=== PATIENT | male | born 1950 | race Caucasian/White ===

== ENCOUNTER 2022-04-15 10:01 | Outpatient (CLI) | payer OTHER, SELFPAY ==
--- NOTE | 2022-04-15 10:21 | EST_ITS ---
Patient Info Name: Karthik Sen Age: 71 years : 1950 Gender: Male Ht: 71 in Wt: 185 lbs BSA: 2.06 m2 HR: 71 bpm BP: 145 / 86 mmHg Heart Rhythm: Sinus Rhythm Exam Date: 04/15/2022 10:45 AM Exam Location: [facility] Stress Patient Status: Outpatient Admit Date: 04/15/2022 Staff Ordering Physician: Carrillo Camarena MD Attending Provider: Carrillo Camarena MD Exercise Technologist: Jennifer Shaffer CT Exercise Physician: Vivek Reyes DO Exam Type: CA stress test treadmill Study Info Indications I25.10 - Atherosclerotic heart disease of [place] coronary artery without angina pectoris A treadmill exercise stress test was performed. Summary 1. 1. Negative Jh exercise stress test for ischemic ST changes by ECG criteria. 2. 2. Reduced functional capacity, achieving 7 METs of workload. 3. 3. Baseline hypertension. 4. 4. Appropriate HR response to exercise. 5. 5. Appropriate HR recovery at 1 minute post exercise. 6. 6. No imaging with stress testing. 7. 7. Patient informed of the above results. Protocol: Jh Stress ECG Details Stage: REST Duration (min): 3 min : 34 sec Speed (mph): 0.0 Grade (%): 0 HR (bpm): 76 SBP (mmHg): 145 DBP (mmHg): 86 METS: --- Stage: REST Duration (min): 3 min : 48 sec Speed (mph): 0.0 Grade (%): 0 HR (bpm): 73 SBP (mmHg): 145 DBP (mmHg): 86 METS: --- Stage: STAGE 1 Duration (min): 1 min : 0 sec Speed (mph): 1.7 Grade (%): 10 HR (bpm): 107 SBP (mmHg): 145 DBP (mmHg): 86 METS: --- Stage: STAGE 1 Duration (min): 2 min : 0 sec Speed (mph): 1.7 Grade (%): 10 HR (bpm): 125 SBP (mmHg): 145 DBP (mmHg): 86 METS: --- Stage: STAGE 1 Duration (min): 3 min : 0 sec Speed (mph): 1.7 Grade (%): 10 HR (bpm): 133 SBP (mmHg): 176 DBP (mmHg): 85 METS: --- Stage: STAGE 2 Duration (min): 1 min : 0 sec Speed (mph): 2.5 Grade (%): 12 HR (bpm): 141 SBP (mmHg): 176 DBP (mmHg): 85 METS: --- Stage: STAGE 2 Duration (min): 1 min : 30 sec Speed (mph): 2.5 Grade (%): 12 HR (bpm): 145 SBP (mmHg): 176 DBP (mmHg): 85 METS: --- Stage: RECOVERY Duration (min): 0 min : 29 sec Speed (mph): 0.0 Grade (%): 0 HR (bpm): 141 SBP (mmHg): 187 DBP (mmHg): 76 METS: --- Stage: RECOVERY Duration (min): 1 min : 29 sec Speed (mph): 0.0 Grade (%): 0 HR (bpm): 106 SBP (mmHg): 187 DBP (mmHg): 76 METS: --- Stage: RECOVERY Duration (min): 2 min : 29 sec Speed (mph): 0.0 Grade (%): 0 HR (bpm): 100 SBP (mmHg): 187 DBP (mmHg): 76 METS: --- Stage: RECOVERY Duration (min): 2 min : 55 sec Speed (mph): 0.0 Grade (%): 0 HR (bpm): 100 SBP (mmHg): 178 DBP (mmHg): 84 METS: --- Rest HR: 73 bpm Peak HR: 146 bpm Rest Sys BP: 145 mmHg Peak Sys BP: 187 mmHg Max Pred HR: 150 bpm % Max Pred HR: 9
== END 2022-04-15 10:02 | disposition home or self-care (01) ==
LOC: ANHCARD 10:03
PROVIDERS: PCP Family Medicine; Visit Provider Family Medicine
DX: I25.10 Atherosclerotic heart disease of native coronary artery without angina pectoris (principal)
CPT/HCPCS: 93017

== ENCOUNTER → 2023-09-27 10:31 | Outpatient (CLI) | payer OTHER, SELFPAY ==
--- NOTE | ~2023-09-27 | XR_ITS ---
EXAMINATION: XR knee RT min 4V DATE: 09/27/2023 11:01 INDICATION: Right knee pain TECHNIQUE: Four views of the right knee were obtained. COMPARISON: None. FINDINGS: Alignment is normal. No fracture or osteochondral lesion. There is moderate narrowing of th e medial compartment and mild narrowing in the lateral and patellofemoral compartments. Surgical mack ges of the knee likely reflect PCL repair. Calcified atherosclerosis is noted. There is a small knee joint effusion. Soft tissues are unremarkable. IMPRESSION: 1. Tricompartmental osteoarthritis, moderate in the medial compartment. Reviewed, dictated and finalized at location L. ISSARY HELPER
--- NOTE | ~2023-09-27 | XR_ITS ---
EXAMINATION: XR knee LT min 4V DATE: 09/27/2023 11:01 INDICATION: Left knee pain TECHNIQUE: Four views of the left knee were obtained. COMPARISON: None. FINDINGS: Alignment is normal. No fracture or osteochondral lesion. There is marked narrowing of the medial compartment and moderate narrowing of the patellofemoral compartment. There is mild narrowing in the lateral compartment. There is a small knee joint effusion. Soft tissues are unremarkable. IMPRESSION: 1. Tricompartmental osteoarthritis with marked narrowing of the medial compartment. Reviewed, dictated and finalized at location L. ENT SAFETY SITTER IMPRESSION: 1. Tricompartmental osteoarthritis with marked narrowing of the medial compartm ent.
== END ==
PROVIDERS: PCP Orthopaedic Surgery; Visit Provider Family Medicine
DX: M17.0 Bilateral primary osteoarthritis of knee (principal)
CPT/HCPCS: 73564

== ENCOUNTER 2024-04-24 10:34 | Outpatient (CLI) | payer OTHER, SELFPAY ==
--- NOTE | ~2024-04-24 | XR_ITS ---
EXAMINATION: XR chest 2V 04/24/2024 10:46 INDICATION: Shortness of breath PROCEDURE: 2 view chest COMPARISON: 11/11/2015 FINDINGS: The lungs are clear. The cardiomediastinal silhouette is within normal limits. There are no pleural effusions. There is no pneumothorax suspected. IMPRESSION: 1: NO ACUTE CARDIOPULMONARY DISEASE. Reviewed, dictated and finalized at location B.
== END 2024-04-24 10:35 ==
LOC: MICIMG 10:37
PROVIDERS: PCP Family Medicine; Visit Provider Physician Assistant Medical
DX: R06.02 Shortness of breath (principal); R53.1 Weakness
CPT/HCPCS: 71046

== ENCOUNTER 2024-05-25 07:32 | Inpatient (IN) | payer OTHER, SELFPAY ==
[2024-05-25] VITALS (33 sets, daily range): BP systolic 97–146; BP diastolic 53–86; PULSE 61–128; RESP 14–38; TEMP 36.2–39.6; O2SAT 91–100
--- NOTE | ~2024-05-25 | XR_ITS ---
EXAMINATION: XR retrograde pyelo w/stent RT DATE: 05/25/2024 13:26 INDICATION: Right internal ureteral stent placement TECHNIQUE: Fluoroscopic images from a right internal ureteral stent placement are submitted for mary beth lazaro 31 seconds of fluoroscopy time. 7 fluoroscopic images. FINDINGS: There is a right double-J internal ureteral stent projecting in expected position, with proximal [place] loop at the level of the renal pelvis and distal loop in the pelvis within the bladder lumen. IMPRESSION: 1. Right internal ureteral stent placement. Please refer to real-time procedural findings for antonieta sagastume. Reviewed, dictated and finalized at location B. IMPRESSION: 1. Right internal ureteral stent placement. Please refer to real-time procedu ral findings for details.
--- NOTE | ~2024-05-25 | CT_ITS ---
EXAMINATION: CT abdomen pelvis wo con DATE: 05/25/2024 09:04 INDICATION: Right flank pain. Right lower back pain. TECHNIQUE: Computed tomography (CT) of the abdomen and pelvis was performed without intravenous contr ast. Automated exposure control and iterative reconstruction technique were employed. The dose-length product was 527.52 mGy-cm. COMPARISON: CT abdomen 05/21/2008 FINDINGS: The visualized portions of the lung bases demonstrate mild atelectasis. A calcified left glenn ng nodule and calcified mediastinal lymph nodes are consistent with old granulomatous disease. No ple ural effusion. The heart size is normal. There are coronary artery calcifications. No pericardial eff usion. The liver and gallbladder are normal. Calcifications in the spleen are consistent with old gra nulomatous disease. The pancreas and adrenal glands are normal. There is a 7 mm stone in an infundibu lum in right kidney lower pole with mild hydronephrosis of the associated calyces. There is a [address] one in right kidney. Left kidney is normal. There is a left inguinal hernia containing fat. There is diverticulosis of the colon without evidence of diverticulitis. The appendix is not visualized. There is calcified atherosclerosis of the aorta and many of the other arteries. There are no pathologicall y enlarged lymph nodes. There is no free intraperitoneal fluid. There is lumbar levoscoliosis and mod erate spondylosis. IMPRESSION: 1. 7 mm stone in an infundibulum in right kidney lower pole with mild hydronephrosis of the associate d calyces. 2. 2 mm nonobstructing right kidney stone. Reviewed, dictated and finalized at location A. IMPRESSION: 1. 7 mm stone in an infundibulum in right kidney lower pole with mild hydroneph rosis of the associated calyces. 2. 2 mm nonobstructing right kidney stone.
--- NOTE | ~2024-05-25 | XR_ITS ---
XR chest 2V Ordering provider: Charlette Puente APRN History: 74 years Male with . tachycardia, cough, sepsis . Comparison: April 24, 2024 FINDINGS: MEDIASTINUM: The cardiac silhouette is not enlarged. LUNGS: No effusions or pneumothorax. Prominent markings in the lower lobes more on the right side which may indicate early pneumonia. Foll ow-up advised. OTHER: No free air under the diaphragm. Degenerative spine. IMPRESSION: Prominent markings in the lower lobes. Early pneumonia in the right lung base is not excluded. Follow -up advised Reviewed, dictated and finalized at location A. IMPRESSION: Prominent markings in the lower lobes. Early pneumonia in the right lung base i s not excluded. Follow-up advised
--- NOTE | 2024-05-25 07:40 | ED.GENADULT ---
HPI - General Adult General Chief complaint: Back Pain/Injury Stated complaint: right flank pain Time Seen by Provider: 05/25/24 07:34 History of Present Illness HPI narrative: 74-year-old male presenting to the emergency department for evaluation for intense right flank pain. Patient states the pain woke him up from sleep. Patient does report associated nausea. Patient denies any falls or injuries. Patient denies any prior history of kidney stones and denies any current pain with urination. Related Data Home Medications Medication Instructions Recorded Confirmed aspirin 81 mg tablet,delayed 81 mg PO DAILY 03/30/22 05/25/24 release (Adult Aspirin Regimen) tadalafil 5 mg tablet (Cialis) 5 mg PO DAILY 09/26/23 05/25/24 sildenafil 100 mg tablet 100 mg PO DAILY PRN NNA 11/04/23 05/25/24 meloxicam 7.5 mg tablet 7.5 mg PO DAILY 05/25/24 05/25/24 Allergies Allergy/AdvReac Type Severity Reaction Status Date / Time rabies vaccine, human Allergy Intermediate RASH, Verified 05/25/24 13:35 diploid cell SWELLING Review of Systems Review of Systems: All systems reviewed & are unremarkable except as noted in HPI and below PMFSH Past Medical History Medical History Avulsion of tendon of finger Bilateral knee pain Body mass index (BMI) of 26.0 to 26.9 in adult Coronary artery disease Mixed hyperlipidemia Priapism Right knee injury Screen for colon cancer Skin cancer screening Surgical History Surgical History Stented coronary artery Family History Family History Father Family history of heart disease in male family member before age 55 Mother Family history of heart disease in male family member before age 55 Sibling Heart disease Tobacco abuse Sibling Tobacco abuse Social History Social History Smoking status: Never smoker Second hand tobacco smoke exposure: Yes Alcohol intake: current Drinks per week: 1 Substance use: never Substance use type: does not use Do You Feel Safe in your Home?: Yes Lack of Transportation: No Lack of Food: Never True Current Housing: I Have Housing Concerned About Future Housing: No Difficulty Paying Gas/Electric Bills: No Difficulty Paying for Meds: No Currently Unemployed: No Education: Master's Degree or Higher Difficulty w/ Childcare or Family Care: No Living arrangements: with family 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 EYES: PERRLA/EOMI, conjunctivae clear. NOSE: Normal no drainage EARS:TMS clear with good light reflex. THROAT: Pharynx clear, no exudate. NECK: Supple. No adenopathy, no masses. RESPIRATORY: Airway patent, respirations nonlabored. Clear to auscultation bilaterally, no rales, rhonchi, wheezing. CARDIOVASCULAR: Regular rate and rhythm without murmurs rubs or gallops. ABDOMINAL: Right CVA tenderness to palpation, no significant abdominal tenderness to palpation MUSCULOSKELETAL: Moves all extremities. Strength/ROM intact, No edema, No calf tenderness. NEURO: Alert. Cranial nerves II through XII intact. Grossly intact Course Course Emergency Course: Case was discussed with Urology and patient was ultimately taken to the or Vital Signs Vital signs: Vital Signs Temperature 97.2 F L 05/25/24 07:37 Pulse Rate 75 05/25/24 07:37 Respiratory Rate 16 05/25/24 07:37 Blood Pressure 146/81 H 05/25/24 07:37 Pulse Oximetry 100 05/25/24 07:37 Temperature 99.7 F H 05/25/24 16:05 Pulse Rate 114 H 05/25/24 16:05 Respiratory Rate 17 05/25/24 16:05 Blood Pressure 105/59 L 05/25/24 16:05 Pulse Oximetry 93 05/25/24 16:05 Oxygen Delivery Room Air 05/25/24 15:40 Oxygen Flow Rate 2 05/25/24 15:35 Medical Decision Making [facility] Narrative Medical decision making narrative: 74-year-old male with no prior history of kidney stones presents emergency department for evaluation for intense right flank pain. Patient is afebrile but does have a leukocytosis of 12.3 and hemoglobin of 12.7. UA was positive for nitrates, +4 bacteria and white blood cells. CT scan does show a right-sided 7 mm kidney stone in the infundibulum. Difficult to control the patient's pain, discussed the case with Urology and patient will be taken to the OR for a stent. Anticipated disposition is discharge home after stent placement. Due to the patient's urinary analysis urine culture was ordered and patient was treated with a dose of 1 g IV Rocephin. Differential Diagnosis Differential Diagnosis: Kidney stone, infected kidney stone, gallstone Vital Signs Vital Signs: Vital Signs Temperature 97.2 F L 05/25/24 07:37 Pulse Rate 75 05/25/24 07:37 Respiratory Rate 16 05/25/24 07:37 Blood Pressure 146/81 H 05/25/24 07:37 Pulse Oximetry 100 05/25/24 07:37 Temperature 99.7 F H 05/25/24 16:05 Pulse Rate 114 H 05/25/24 16:05 Respiratory Rate 17 05/25/24 16:05 Blood Pressure 105/59 L 05/25/24 16:05 Pulse Oximetry 93 05/25/24 16:05 Oxygen Delivery Room Air 05/25/24 15:40 Oxygen Flow Rate 2 05/25/24 15:35 Lab Data Lab results reviewed: Yes I reviewed the patient's lab results. 05/25/24 07:43 05/25/24 07:43 Labs: Lab Results 05/25/24 05/25/24 05/25/24 Range/Units 07:43 09:11 16:57 WBC 12.3 H (4.5-10.0) K/mm3 RBC 4.72 (4.6-6.20) M/mm3 Hgb 12.7 L (14.0-18.0) g/dL Hct 39.5 L (42.0-52.0) % MCV 83.7 (80-100) fl MCH 26.9 (26-34) pg MCHC 32.2 (32-36) g/dl RDW 14.9 H (11.5-14.5) % Plt Count 355 (150-375) k/mm3 MPV 10.0 (7.4-10.4) fl Immature Gran % (Auto) 0.3 (0-0.5) % Neut % (Auto) 65.9 (45.5-73.1) % Lymph % (Auto) 26.5 (18.3-44.2) % [place] % (Auto) 5.8 (2.6-8.5) % Eos % (Auto) 1.0 (0-4.4) % Baso % (Auto) 0.5 (0.2-1.2) % Lymph # (Auto) 3.27 H (0.9-3.2) K/mm3 [place] # (Auto) 0.7 H (0.1-0.6) K/mm3 Eos # (Auto) 0.1 (0-0.3) K/mm3 Baso # (Auto) 0.1 (0.0-0.1) K/mm3 Abs Immat Gran (auto) 0.04 H (0.00-0.031) K/mm3 Absolute Neuts (auto) 8.1 H (1.3-6.7) K/mm3 Absolute Nucleated RBC 0.000 (0.0-0.012) K/mm3 Nucleated RBC % 0.0 (0.0-0.2) % Sodium 139 (137-145) mmol/L Potassium 3.9 (3.4-5.0) mmol/L Chloride 103 (98-107) mmol/L Carbon Dioxide 21 L (22-30) mmol/L Anion Gap 15 H (4-12) mmol/L BUN 18 (9-20) mg/dL Creatinine 0.70 (0.7-1.3) mg/dL Estim Creat Clear Calc 89 ml/min Estimated GFR > 60 (59 - ) Glucose 113 H (65-110) mg/dL Lactic Acid 1.9 (0.7-2.0) mmol/L Calcium 9.4 (8.4-10.2) mg/dL Total Bilirubin 0.6 (0.2-1.3) mg/dL AST 25 (17-59) U/L ALT 18 (6-50) U/L Alkaline Phosphatase 75 (38-126) U/L Total Protein 8.0 (6.3-8.2) g/dL Albumin 4.6 (3.5-5.1) g/dL Procalcitonin 29.1 ng/mL Urine Color Yellow (Yellow) Urine Appearance Clear (Clear) Urine pH 7.5 (5.0-9.0) Ur Specific [place] 1.016 (1.001-1.035) Urine Protein Trace (Negative) mg/dL Urine Glucose (UA) Negative (Negative) mg/dL Urine Ketones Negative (Negative) mg/dL Ur Blood (Man) Non-hemolyzed trace (Negative) Urine Nitrate Positive H (Negative) Urine Bilirubin Negative (Negative) Urine Urobilinogen 1.0 (<2.0) mg/dL Leukocyte Esterase Rfl 2+ H (Negative) NARCISA/UL Urine RBC 11-20 H (0-2) /hpf Urine WBC 21-50 H (0-3) /hpf Ur Squamous Epith Cells None seen (Few) /hpf Urine Bacteria 4+ H /hpf Urine Casts 0-2 ECG Data EKG #1: EKG Interpretation: normal rate, sinus rhythm, no ectopy, non-specific ST changes, normal QRS and NL axis Discharge Plan Discharge Clinical Impression: Calculi, ureter, Abnormal urinalysis Patient Disposition: Still a Patient Condition: Stable
[2024-05-25] MEDS: ONDANSETRON INJ 4 MG/2 ML VIAL IV PUSH ×2 (07:46→08:48)
[2024-05-25] MEDS: HYDROmorphone HCL INJ (*CRX) 1 MG/ML SYR 0.5 MG IV PUSH ×3 (07:46→12:51)
[2024-05-25 07:51] LABS: Basophils Absolute Auto 0.1 K/mm3 (0.0-0.1); Basophils Percent Auto 0.5 % (0.2-1.2); Eosinophils Absolute Auto 0.1 K/mm3 (0-0.3); Hematocrit 39.5 % (42.0-52.0); Hemoglobin 12.7 g/dL (14.0-18.0); Immature Granulocyte Absolute 0.04 K/mm3 (0.00-0.031); Immature Granulocyte Percent A 0.3 % (0-0.5); Lymphocytes Absolute Auto 3.27 K/mm3 (0.9-3.2); Lymphocytes Percent Auto 26.5 % (18.3-44.2); Mean Corpuscular HGB Conc 32.2 g/dl (32-36); Mean Corpuscular Hemoglobin 26.9 pg (26-34); Mean Corpuscular Volume 83.7 fl (80-100); Monocytes Absolute Auto 0.7 K/mm3 (0.1-0.6); Monocytes Percent Auto 5.8 % (2.6-8.5); Neutrophils Absolute Auto 8.1 K/mm3 (1.3-6.7); Neutrophils Percent Auto 65.9 % (45.5-73.1); Platelet Count Result 355 k/mm3 (150-375); Red Blood Count 4.72 M/mm3 (4.6-6.20); Red Cell Distribution Width 14.9 % (11.5-14.5); White Blood Count 12.3 K/mm3 (4.5-10.0)
[2024-05-25 08:00] LABS: Alanine Aminotransferase 18 U/L (6-50); Albumin Level 4.6 g/dL (3.5-5.1); Alkaline Phosphatase 75 U/L (38-126); Anion Gap 15 mmol/L (4-12); Aspartate Amino Transferase 25 U/L (17-59); Bilirubin,Total 0.6 mg/dL (0.2-1.3); Blood Urea Nitrogen 18 mg/dL (9-20); Calcium 9.4 mg/dL (8.4-10.2); Carbon Dioxide 21 mmol/L (22-30); Chloride 103 mmol/L (98-107); Estimated CRCL calculation 89 ml/min; Estimated Glomerular Filt Rate > 60; Glucose 113 mg/dL (65-110); Potassium 3.9 mmol/L (3.4-5.0); Sodium 139 mmol/L (137-145)
[2024-05-25] MEDS: SODIUM CHLORIDE 0.9% IV 500 ML 999 ML IV CONT (09:14)
[2024-05-25 09:29] LABS: Add Urine Microscopic? YES; Appearance Urine Clear (Clear); Bacteria Urine 4+ /hpf; Bilirubin Urine Negative (Negative); Blood Urine Non-Hemolyzed Trace (Negative); Color Urine Yellow (Yellow); Glucose Urine UA Negative (Negative); Ketones Urine Negative (Negative); Leukocyte Esterase Ur 2+ LEU/UL (Negative); Nitrate Urine Positive (Negative); Non Pathogenic Casts 0-2; Protein Urine Trace mg/dL (Negative); Specific Grav Ur 1.016 (1.001-1.035); Squamous Epithelial Cell Urine None Seen /hpf (Few); WBC Urine 21-50 /hpf (0-3); pH Urine 7.5 (5.0-9.0)
--- NOTE | 2024-05-25 10:04 | WPDHPUPDATE1 ---
History and Physical Update Update Date/Time: 05/25/24 10:04 History and Physical has been reviewed, including an updated exam of the patient. There are NO changes in the patient's condition. Risks, benefits, and alternatives have been discussed and questions answered. Patient agrees to proceed with procedure.
--- NOTE | 2024-05-25 10:38 | P.CONUR_ITS ---
Assessment and Plan Assessment and plan (1) Right renal stone: Code(s): N20.0 - Calculus of kidney Status: Acute Assessment and Plan: 7 mm right renal stone with mild hydro. Planning for cystoscopy with right u reteral stent placement today with Dr. Bettencourt. Discussed procedure and pt agrees to proceed. Understands temporary nature of stent and need for definitive stone management. Will plan for right ESWL at a later date. He is on aspirin and meloxicam which will need to be held prior to ESWL. (2) Hydronephrosis: Code(s): N13.30 - Unspecified hydronephrosis Status: Acute Assessment and Plan: Plan as above. (3) Abnormal urinalysis: Code(s): R82.90 - Unspecified abnormal findings in urine Status: Acute Assessment and Plan: UA abnormal, concerning for infection. Continue empiric antibiotics. Urine culture is pending. Urology Consult Note HPI Date Seen: 05/25/24 Time Seen: 09:30 Requesting Physician: Bora Bettencourt MD Primary Care Provider: Carrillo Camarena MD Consult Narrative Narrative: Karthik Sen is a 74 year old male with no prior urologic history who presented to the ER this morning after he developed sudden onset of right flank pain. Reports about 4 days ago he had an episode of hematuria that was self limited. He denies dysuria. Denies N/V/F/C. On arrival, his vital signs were stable and he was afebrile. WBC slightly elevated at 12.3, creatinine 0.7, UA with positive nitrates, 2+ leukocytes, and trace blood. A urine culture is pending at this time. A CT of the abdomen/pelvis was completed which showed a 7 mm stone in the right lower pole infundibulum with mild hydronephrosis in the calyces as well as a 2 mm nonobstructing right renal stone. At the time of my evaluation, he endorses persistent right flank pain. Will plan for cystoscopy and right ureteral stent placement today with Dr. Bettencourt. Discussed temporary nature of stent and need for appropriate follow up for definitive stone management; he is agreeable. Review of Systems Review of Systems: All systems reviewed & are unremarkable except as noted in HPI and below PMFSH Past Medical History Medical History Avulsion of tendon of finger Bilateral knee pain Body mass index (BMI) of 26.0 to 26.9 in adult Coronary artery disease Mixed hyperlipidemia Priapism Right knee injury Screen for colon cancer Skin cancer screening Family History Family History Father Family history of heart disease in male family member before age 55 Mother Family history of heart disease in male family member before age 55 Sibling Heart disease Tobacco abuse Sibling Tobacco abuse Social History Social History Smoking status: Never smoker Second hand tobacco smoke exposure: Yes Alcohol intake: current Substance use: never Substance use type: does not use Do You Feel Safe in your Home?: Yes Lack of Transportation: No Lack of Food: Never True Current Housing: I Have Housing Concerned About Future Housing: No Difficulty Paying Gas/Electric Bills: No Difficulty Paying for Meds: No Currently Unemployed: No Education: Master's Degree or Higher Difficulty w/ Childcare or Family Care: No Living arrangements: with family Occupation/Education: retired 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 Gender identity (if verbalized by the patient): Male Meds Home Medications and Allergies Home Medications Medication Instructions Recorded Confirmed Type aspirin 81 mg tablet,delayed 81 mg PO DAILY 03/30/22 04/24/24 History release (Adult Aspirin Regimen) epinephrine 0.3 mg/0.3 mL 0.3 mg (0.3 mL) IM ONCE #2 ea 07/27/23 04/24/24 Rx injection, auto-injector tadalafil 5 mg tablet (Cialis) 5 mg PO DAILY 09/26/23 04/24/24 History sildenafil 100 mg tablet 100 mg PO DAILY PRN 11/04/23 04/24/24 History rosuvastatin 40 mg tablet 40 mg PO DAILY #90 tabs 01/15/24 04/24/24 Rx meloxicam 7.5 mg tablet See Rx Instructions .Route 04/20/24 04/24/24 Rx .COMPLEX #30 tabs Allergies Allergy/AdvReac Type Severity Reaction Status Date / Time rabies vaccine, human Allergy Intermediate RASH, Verified 04/24/24 09:19 diploid cell SWELLING Vital Signs Vital Signs - 24 hr 05/25/24 07:37 05/25/24 07:38 05/25/24 07:39 Temperature 97.2 F L Pulse Rate 75 77 73 Respiratory Rate 16 14 38 H Blood Pressure 146/81 H 146/81 H Pulse Oximetry 100 100 100 05/25/24 07:45 05/25/24 07:48 05/25/24 08:03 Temperature Pulse Rate 73 73 67 Respiratory Rate 34 H 34 H 20 Blood Pressure 139/82 Pulse Oximetry 100 100 100 05/25/24 08:15 05/25/24 08:16 05/25/24 08:46 Temperature Pulse Rate 61 69 90 Respiratory Rate 16 15 23 H Blood Pressure 132/75 143/86 H Pulse Oximetry 97 97 100 05/25/24 08:47 Temperature Pulse Rate 99 Respiratory Rate 21 H Blood Pressure Pulse Oximetry 99 Exam Narrative: General: Awake, alert, comfortable, no acute distress HEENT: Normocephalic, atraumatic, sclerae anicteric Respiratory: Normal respiratory effort, no accessory muscle use Abdomen: Nondistended, soft, nontender Skin: Normal coloration, warm and dry Neurologic: No focal neuro deficits noted Psychiatric: Appropriate mood and affect, judgment and insight intact Results Labs 05/25/24 07:43 05/25/24 07:43 Labs: Short CBC 05/25/24 Range/Units 07:43 WBC 12.3 H (4.5-10.0) K/mm3 Hgb 12.7 L (14.0-18.0) g/dL Hct 39.5 L (42.0-52.0) % Plt Count 355 (150-375) k/mm3 BMP 05/25/24 07:43 Sodium 139 Potassium 3.9 Chloride 103 Carbon Dioxide 21 L BUN 18 Creatinine 0.70 Glucose 113 H Calcium 9.4 Liver Function 05/25/24 Range/Units 07:43 Total Bilirubin 0.6 (0.2-1.3) mg/dL AST 25 (17-59) U/L ALT 18 (6-50) U/L Alkaline Phosphatase 75 (38-126) U/L Albumin 4.6 (3.5-5.1) g/dL Urine 05/25/24 Range/Units 09:11 Urine Color Yellow (Yellow) Urine Appearance Clear (Clear) Urine pH 7.5 (5.0-9.0) Ur Specific [place] 1.016 (1.001-1.035) Urine Protein Trace (Negative) mg/dL Urine Glucose (UA) Negative (Negative) mg/dL
[2024-05-25] MEDS: LACTATED RINGERS 1,000 ML 30 ML IV CONT ×2 (11:45→14:30)
--- NOTE | 2024-05-25 11:53 | ECG_ITS ---
Test Date: 2024-05-25 12:04:13 Measurements Intervals [place] Rate: 113 P: 58 MT: 179 QRS: 4 QRSD: 98 T: 51 QT: 316 QTc: 434 Interpretive Statements SINUS TACHYCARDIA RIGHT ATRIAL ENLARGEMENT NONSPECIFIC T-WAVE ABNORMALITY ABNORMAL RHYTHM ECG No previous ECG available for comparison Electronically Signed On 05-25-2024 15:10:46 CDT by Major Shaw M.D.
--- NOTE | 2024-05-25 12:01 | P.PNAN_ITS ---
Anes - Initial Pre Proc Eval Procedure: Operation Date: 05/25/24 13:00 Proposed Procedures p Cystoscopy, Right Stent Placement - Bora Bettencourt MD Date/Time: 05/25/24 12:01 Surgeon: Bora Bettencourt MD Pre Op Diagnosis: Stent Patient Data Age: 74 Gender: M Height: 1.83 m Weight: 84.1 kg Last Vital Signs Temp 36.2 C L 05/25/24 07:37 Pulse 113 H 05/25/24 11:06 Resp 20 05/25/24 11:06 BP 119/63 05/25/24 11:06 Pulse Ox 91 05/25/24 11:06 Allergies Allergy/AdvReac Type Severity Reaction Status Date / Time rabies vaccine, human Allergy Intermediate RASH, Verified 04/24/24 09:19 diploid cell SWELLING Home Medications Medication Instructions Recorded Confirmed Type aspirin 81 mg tablet,delayed 81 mg PO DAILY 03/30/22 04/24/24 History release (Adult Aspirin Regimen) epinephrine 0.3 mg/0.3 mL 0.3 mg (0.3 mL) IM ONCE #2 ea 07/27/23 04/24/24 Rx injection, auto-injector tadalafil 5 mg tablet (Cialis) 5 mg PO DAILY 09/26/23 04/24/24 History sildenafil 100 mg tablet 100 mg PO DAILY PRN 11/04/23 04/24/24 History rosuvastatin 40 mg tablet 40 mg PO DAILY #90 tabs 01/15/24 04/24/24 Rx meloxicam 7.5 mg tablet See Rx Instructions .Route 04/20/24 04/24/24 Rx .COMPLEX #30 tabs Laboratory Tests 05/25/24 05/25/24 07:43 09:11 WBC 12.3 H K/mm3 (4.5-10.0) RBC 4.72 M/mm3 (4.6-6.20) Hgb 12.7 L g/dL (14.0-18.0) Hct 39.5 L % (42.0-52.0) MCV 83.7 fl (80-100) MCH 26.9 pg (26-34) MCHC 32.2 g/dl (32-36) RDW 14.9 H % (11.5-14.5) Plt Count 355 k/mm3 (150-375) MPV 10.0 fl (7.4-10.4) Immature Gran % (Auto) 0.3 % (0-0.5) Neut % (Auto) 65.9 % (45.5-73.1) Lymph % (Auto) 26.5 % (18.3-44.2) [place] % (Auto) 5.8 % (2.6-8.5) Eos % (Auto) 1.0 % (0-4.4) Baso % (Auto) 0.5 % (0.2-1.2) Lymph # (Auto) 3.27 H K/mm3 (0.9-3.2) [place] # (Auto) 0.7 H K/mm3 (0.1-0.6) Eos # (Auto) 0.1 K/mm3 (0-0.3) Baso # (Auto) 0.1 K/mm3 (0.0-0.1) Abs Immat Gran (auto) 0.04 H K/mm3 (0.00-0.031) Absolute Neuts (auto) 8.1 H K/mm3 (1.3-6.7) Absolute Nucleated RBC 0.000 K/mm3 (0.0-0.012) Nucleated RBC % 0.0 % (0.0-0.2) Sodium 139 mmol/L (137-145) Potassium 3.9 mmol/L (3.4-5.0) Chloride 103 mmol/L (98-107) Carbon Dioxide 21 L mmol/L (22-30) Anion Gap 15 H mmol/L (4-12) BUN 18 mg/dL (9-20) Creatinine 0.70 mg/dL (0.7-1.3) Estim Creat Clear Calc 89 ml/min Estimated GFR > 60 (59 - ) Glucose 113 H mg/dL (65-110) Calcium 9.4 mg/dL (8.4-10.2) Total Bilirubin 0.6 mg/dL (0.2-1.3) AST 25 U/L (17-59) ALT 18 U/L (6-50) Alkaline Phosphatase 75 U/L (38-126) Total Protein 8.0 g/dL (6.3-8.2) Albumin 4.6 g/dL (3.5-5.1) Urine Color Yellow (Yellow) Urine Appearance Clear (Clear) Urine pH 7.5 (5.0-9.0) Ur Specific [place] 1.016 (1.001-1.035) Urine Protein Trace mg/dL (Negative) Urine Glucose (UA) Negative mg/dL (Negative) Urine Ketones Negative mg/dL (Negative) Ur Blood (Man) Non-hemolyzed trace (Negative) Urine Nitrate Positive H (Negative) Urine Bilirubin Negative (Negative) Urine Urobilinogen 1.0 mg/dL (<2.0) Leukocyte Esterase Rfl 2+ H NARCISA/UL (Negative) Urine RBC 11-20 H /hpf (0-2) Urine WBC 21-50 H /hpf (0-3) Ur Squamous Epith Cells None seen /hpf (Few) Urine Bacteria 4+ H /hpf Urine Casts 0-2 Patient hx anesthesia problems: none Family hx anesthesia problems: none Results Review: All pre-operative results and documents have been reviewed as part of the pre- operative evaluation. [facility] Past Medical History Medical History Avulsion of tendon of finger Bilateral knee pain Body mass index (BMI) of 26.0 to 26.9 in adult Coronary artery disease Mixed hyperlipidemia Priapism Right knee injury Screen for colon cancer Skin cancer screening Surgical History Surgical History (Updated 05/25/24 @ 12:01 by Leo Lambert MD) Stented coronary artery Family History Family History Father Family history of heart disease in male family member before age 55 Mother Family history of heart disease in male family member before age 55 Sibling Heart disease Tobacco abuse Sibling Tobacco abuse Social History Social History Smoking status: Never smoker Second hand tobacco smoke exposure: Yes Alcohol intake: current Substance use: never Substance use type: does not use Do You Feel Safe in your Home?: Yes Lack of Transportation: No Lack of Food: Never True Current Housing: I Have Housing Concerned About Future Housing: No Difficulty Paying Gas/Electric Bills: No Difficulty Paying for Meds: No Currently Unemployed: No Education: Master's Degree or Higher Difficulty w/ Childcare or Family Care: No Living arrangements: with family Occupation/Education: retired 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 Informed Consent: The patient's anesthetic plan and its attendant risks and benefits were discussed with the patient/family/POA. Questions were solicited and answers provided to the satisfaction of the patient/family/POA.
[2024-05-25] MEDS: LIDOCAINE HCL 2% GEL UROJET 10 ML PKG MUCOUS MEM (13:19)
--- NOTE | 2024-05-25 13:23 | P.OP_ITS ---
Procedure Note - Detailed Date of Procedure 05/25/24 Pre-op Diagnosis Right renal stone Post-op Diagnosis Same Procedure Performed Cystoscopy, right retrograde pyelography, right ureteral stent placement Surgeon Bora Bettencourt MD Anesthesia General Description of Procedure patient is brought the operative suite was prepped draped in routine sterile fashion while in dorsal lithotomy position after the uneventful induction of systemic sedation. 2% xylocaine jelly was introduced intraurethrally. Cystosc opy was undertaken with a 19 F rigid cystoscope. There was no urethral stricture. He has a 2.5-3 cm prostatic urethra with predominantly lateral lobe hyperplasia. The bladder was slightly trabeculated. There was no intravesical foreign body or neoplasm. He has a single orthotopic ureteral orifice bilaterally. A 0.035 in glidewire is advanced to his right renal pelvis. Any angiographic catheter was used to obtain a right retrograde pyelogram. 4.8 F ureteral stent is positioned so that the proximal coil is in an upper pole calyx, above his renal stone coil is positioned in the bladder. Scopes and wires removed he was taken recovery room in good condition. Drains Yes Packing No Pathology None sent Complications No immediate complications
[2024-05-25] MEDS: ACETAMINOPHEN 500 MG TABLET 1000 MG PO (14:38)
[2024-05-25] MEDS: KETOROLAC 15 MG/ML VIAL (*BKC) IV PUSH (14:40)
--- NOTE | 2024-05-25 15:45 | SUR.PHASEI ---
1540 - dr. winters at bedside talking with pt
--- NOTE | 2024-05-25 16:26 | PM.IMHP ---
H&P: HPI History of Present Illness Date/Time: 05/25/24 16:26 Chief Complaint: Flank Pain Narrative: 74 y/o M presents here with right flank pain with PMH of coronary artery disease, hyperlipidemia, and priapism. The patient presented here from home for further evaluation of right lower back pain and right flank pain. He reports onset 1 hours prior to arrival to the emergency department around 7:30 this morning. Pain woke the patient from his sleep around 6:15 am. He described as sharp/stabbing, radiation down his right leg, constant, and no aggravating or alleviating factors. Trialed heat at home without effect. Accompanied by hematuria 4 days prior to pain today. Flank pain is not accompanied by nausea, vomiting, precipitating injury, or dysuria. Patient denies previous history of kidney stones. Urology was consulted in the emergency department and patient went for a retrograde pyelogram with stent placement. However postprocedure patient developed fever of 103.3? F and tachycardia with max heart rate of 128. Admission for possible urosepsis. Cough noted during exam, however patient not reporting shortness of breath. Initial VS at presentation: 97.2? F, HR 75, RR 16, 146/81, and 100% on RA. ED workup showed: WBC 12.3, hemoglobin 12.7, creatinine 0.7 and number GFR, UA consistent with UTI. CT of the abdomen/pelvis showed a 7 mm stone in a infundibulum in right kidney lower pole with mild hydronephrosis of the associated calyces and 2 mm nonobstructing right kidney stone. Review of Systems Review of Systems: All systems reviewed & are unremarkable except as noted in HPI and below PMFSH Past Medical History Medical History Avulsion of tendon of finger Bilateral knee pain Body mass index (BMI) of 26.0 to 26.9 in adult Coronary artery disease Mixed hyperlipidemia Priapism Right knee injury Screen for colon cancer Skin cancer screening Surgical History Surgical History Stented coronary artery Family History Family History Father Family history of heart disease in male family member before age 55 Mother Family history of heart disease in male family member before age 55 Sibling Heart disease Tobacco abuse Sibling Tobacco abuse Social History Social History Smoking status: Never smoker Second hand tobacco smoke exposure: Yes Alcohol intake: current Drinks per week: 1 Substance use: never Substance use type: does not use Do You Feel Safe in your Home?: Yes Lack of Transportation: No Lack of Food: Never True Current Housing: I Have Housing Concerned About Future Housing: No Difficulty Paying Gas/Electric Bills: No Difficulty Paying for Meds: No Currently Unemployed: No Education: Master's Degree or Higher Difficulty w/ Childcare or Family Care: No Living arrangements: with family Occupation/Education: retired 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 Gender identity (if verbalized by the patient): Male Spiritual care concerns: No Meds Home Medications and Allergies Home Medications Medication Instructions Recorded Confirmed Type aspirin 81 mg tablet,delayed 81 mg PO DAILY 03/30/22 05/25/24 History release (Adult Aspirin Regimen) tadalafil 5 mg tablet (Cialis) 5 mg PO DAILY 09/26/23 05/25/24 History sildenafil 100 mg tablet 100 mg PO DAILY PRN NNA 11/04/23 05/25/24 History rosuvastatin 40 mg tablet 40 mg PO DAILY #90 tabs 01/15/24 05/25/24 Rx meloxicam 7.5 mg tablet 7.5 mg PO DAILY 05/25/24 05/25/24 History Allergies Allergy/AdvReac Type Severity Reaction Status Date / Time rabies vaccine, human Allergy Intermediate RASH, Verified 05/25/24 13:35 diploid cell SWELLING Vital Signs Vital Signs - 24 hr 05/25/24 07:37 05/25/24 07:38 05/25/24 07:39 Temperature 97.2 F L Pulse Rate 75 77 73 Respiratory Rate 16 14 38 H Blood Pressure 146/81 H 146/81 H Pulse Oximetry 100 100 100 Oxygen Delivery Oxygen Flow Rate 05/25/24 07:45 05/25/24 07:48 05/25/24 08:03 Temperature Pulse Rate 73 73 67 Respiratory Rate 34 H 34 H 20 Blood Pressure 139/82 Pulse Oximetry 100 100 100 Oxygen Delivery Oxygen Flow Rate 05/25/24 08:15 05/25/24 08:16 05/25/24 08:46 Temperature Pulse Rate 61 69 90 Respiratory Rate 16 15 23 H Blood Pressure 132/75 143/86 H Pulse Oximetry 97 97 100 Oxygen Delivery Oxygen Flow Rate 05/25/24 08:47 05/25/24 10:01 05/25/24 10:37 Temperature Pulse Rate 99 110 H 112 H Respiratory Rate 21 H 15 17 Blood Pressure Pulse Oximetry 99 92 Oxygen Delivery Oxygen Flow Rate 05/25/24 10:45 05/25/24 11:06 05/25/24 13:27 Temperature 98.1 F Pulse Rate 112 H 113 H 106 H Respiratory Rate 15 20 19 Blood Pressure 119/63 98/61 L Pulse Oximetry 91 98 Oxygen Delivery Simple Face Mask Oxygen Flow Rate 8 05/25/24 11:45 05/25/24 13:35 05/25/24 13:45 Temperature 100.2 F H Pulse Rate 112 H 101 H 103 H Respiratory Rate 16 17 18 Blood Pressure 97/55 L 114/63 105/64 Pulse Oximetry 92 94 94 Oxygen Delivery Room Air Room Air Room Air Oxygen Flow Rate 05/25/24 14:00 05/25/24 14:15 05/25/24 14:30 Temperature 100.2 F H 101.5 F H Pulse Rate 101 H 128 H 120 H Respiratory Rate 20 24 H 24 H Blood Pressure 122/68 142/72 H 128/74 Pulse Oximetry 96 97 94 Oxygen Delivery Room Air Room Air Room Air Oxygen Flow Rate 05/25/24 14:40 05/25/24 14:50 05/25/24 15:05 Temperature 103.3 F H 99.6 F 101.2 F H Pulse Rate 118 H 117 H 120 H Respiratory Rate 26 H 15 16 Blood Pressure 141/73 H 126/68 101/59 L Pulse Oximetry 94 95 94 Oxygen Delivery Room Air Nasal Cannula Nasal Cannula Oxygen Flow Rate 2 2 05/25/24 15:20 05/25/24 15:35 05/25/24 15:40 Temperature Pulse Rate 118 H 118 H 120 H Respiratory Rate 18 24 H 18 Blood Pressure 106/54 L 101/60 100/53 L Pulse Oximetry 93 93 96 Oxygen Delivery Nasal Cannula Nasal Cannula Room Air Oxygen Flow Rate 2 2 05/25/24 16:05 Temperature 99.7 F H Pulse Rate 114 H Respiratory Rate 17 Blood Pressure 105/59 L Pulse Oximetry 93 Oxygen Delivery Oxygen Flow Rate Exam Const: General: comfortable and no acute distress Other: , male, nontoxic appearance HENMT: Face/Nose/Sinus: Normal nares present Mouth: Yes moist mucous membranes Eyes: General: appearance normal, both eyes and all related structures Sclera: sclerae normal Pupils: Equal, round and reactive pupils present EOM: EOMs intact bilaterally Resp: Effort & Inspection: normal respiratory effort Auscultation: clear to auscultation bilaterally Cardio: Rate: tachycardic Rhythm: regular rhythm Other: S1-S2 present without murmur, rub, ectopy GI: Other: Abdomen soft, nondistended, nontender. Improved. Normoactive bowel sounds in all quadrants. : Other: No CVA tenderness. Neuro: Speech: normal speech Motor exam (neuro): 5/5 motor strength present throughout Sensory Exam: normal sensation Other: A&O x4 Extrem: General: normal to inspection Psych: Mental Status: mental status grossly normal Affect: normal affect Other: Good insight and judgment, pleasant H&P: Results Labs Labs: Short CBC 05/25/24 Range/Units 07:43 WBC 12.3 H (4.5-10.0) K/mm3 Hgb 12.7 L (14.0-18.0) g/dL Hct 39.5 L (42.0-52.0) % Plt Count 355 (150-375) k/mm3 BMP 05/25/24 07:43 Sodium 139 Potassium 3.9 Chloride 103 Carbon Dioxide 21 L BUN 18 Creatinine 0.70 Glucose 113 H Calcium 9.4 Liver Function 05/25/24 Range/Units 07:43 Total Bilirubin 0.6 (0.2-1.3) mg/dL AST 25 (17-59) U/L ALT 18 (6-50) U/L Alkaline Phosphatase 75 (38-126) U/L Albumin 4.6 (3.5-5.1) g/dL Urine 05/25/24 Range/Units 09:11 Urine Color Yellow (Yellow) Urine Appearance Clear (Clear) Urine pH 7.5 (5.0-9.0) Ur Specific [place] 1.016 (1.001-1.035) Urine Protein Trace (Negative) mg/dL Urine Glucose (UA) Negative (Negative) mg/dL Assessment and Plan Assessment and plan (1) Sepsis: Qualifiers: Sepsis acute organ dysfunction status: without acute organ dysfunction Sepsis type: sepsis due to unspecified organism Qualified Code(s): A41.9 - Sepsis, unspecified organism Code(s): A41.9 - Sepsis, unspecified organism Status: Acute Assessment and Plan: - meets SIRS criteria: Fever, tachycardia, elevated white count. - lactic acid not done during initial evaluation, will add lactic acid and procalcitonin - 30 mL/kg = 2500, given 1L bolus. Will give additional bolus and continue maintenance fluids. - suspected source: septic stone/UTI - started on ceftriaxone - blood cultures drawn on 05/25 - UA suspicious for UTI - CXR added, showed prominent markings in the lower lobes. Early pneumonia in the right lung base cannot be excluded. Will add azithromycin to cover for pneumonia. - monitor I&Os (2) UTI (urinary tract infection): Qualifiers: Hematuria presence: without hematuria Urinary tract infection type: acute cystitis Qualified Code(s): N30.00 - Acute cystitis without hematuria Code(s): N39.0 - Urinary tract infection, site not specified Status: Acute Assessment and Plan: - UA: Positive nitrates, 2+ leuks, 11-20 RBC, 21-50 WBC, no epithelial cells, 4+ bacteria - UC pending - previous micro reviewed, none available for review - started on Ceftriaxone on 05/25 (3) Hydronephrosis: Qualifiers: Hydronephrosis type: with renal calculous obstruction Qualified Code(s): N13.2 - Hydronephrosis with renal and ureteral calculous obstruction Code(s): N13.30 - Unspecified hydronephrosis Status: Acute Assessment and Plan: - urology consulted, Lex OLVERA provided the following recs: Cystoscopy with right ureteral stent placement planned for today with Sg JAY right ESWL at a later date hold aspirin and meloxicam prior to ESWL - will need to follow-up with urology outpatient for definitive stone treatment, Urology discussed this with patient Plan Patient here with right flank pain found to have a 7 mm right renal stone with mild hydronephrosis. Patient went for cystoscopy with right ureteral stent placement. However post-procedure patient developed significant fever of 103.3 and tachycardia. Now being admitted for possible urosepsis. Fluids initiated and antipyretics. Started on ceftriaxone on 05/25. Blood cultures and urine culture pending. CXR showing possible right lower lobe pneumonia, adding azithromycin for pneumonia coverage. Diet: Regular GI Prophylaxis: Not currently indicated DVT Prophylaxis: SCDs Lines: Peripheral Code Status: Full code Quality VTE Prophylaxis VTE prophylaxis: mechanical ordered Hospitalist MIPS Advance Care Plan I have confirmed that the patient's Advanced Care Plan is present, code status is documented, or surrogate decision maker is listed in patient medical record.: Yes Medication Reconciliation I have utilized all available resources to obtain, update and review the patients current medications (includes all prescriptions, OTC, herbals, cannabis, and nutritional supplements).: Yes
--- NOTE | 2024-05-25 17:03 | P.PNUR_ITS ---
Progress Note: A&P Assessment and Plan (1) Right renal stone: Code(s): N20.0 - Calculus of kidney Status: Acute (2) Hydronephrosis: Qualifiers: Hydronephrosis type: with renal calculous obstruction Qualified Code(s): N13.2 - Hydronephrosis with renal and ureteral calculous obstruction Code(s): N13.30 - Unspecified hydronephrosis Status: Acute Assessment and Plan: * Postoperative fever and PACU will necessitate admission for broad-spectrum antibiotics pending cultures * My office will contact to arrange definitive right ESWL Subjective Subjective Date/Time Seen: 05/25/24 17:03 Interval history: Comfortable following stent placement Fever 101 in PACU Exam Const: General: no acute distress Resp: Effort & Inspection: normal respiratory effort GI: Inspection: non-distended GI Palp: No abdominal tenderness and No Guar ding due to palpation present (GI) Auscultation: normal bowel sounds Objective Data Vital Signs Vital Signs: Vital Signs - 24 hr 05/25/24 07:37 05/25/24 07:38 05/25/24 07:39 Temperature 97.2 F L Pulse Rate 75 77 73 Respiratory Rate 16 14 38 H Blood Pressure 146/81 H 146/81 H Pulse Oximetry 100 100 100 Oxygen Delivery Oxygen Flow Rate 05/25/24 07:45 05/25/24 07:48 05/25/24 08:03 Temperature Pulse Rate 73 73 67 Respiratory Rate 34 H 34 H 20 Blood Pressure 139/82 Pulse Oximetry 100 100 100 Oxygen Delivery Oxygen Flow Rate 05/25/24 08:15 05/25/24 08:16 05/25/24 08:46 Temperature Pulse Rate 61 69 90 Respiratory Rate 16 15 23 H Blood Pressure 132/75 143/86 H Pulse Oximetry 97 97 100 Oxygen Delivery Oxygen Flow Rate 05/25/24 08:47 05/25/24 10:01 05/25/24 10:37 Temperature Pulse Rate 99 110 H 112 H Respiratory Rate 21 H 15 17 Blood Pressure Pulse Oximetry 99 92 Oxygen Delivery Oxygen Flow Rate 05/25/24 10:45 05/25/24 11:06 05/25/24 13:27 Temperature 98.1 F Pulse Rate 112 H 113 H 106 H Respiratory Rate 15 20 19 Blood Pressure 119/63 98/61 L Pulse Oximetry 91 98 Oxygen Delivery Simple Face Mask Oxygen Flow Rate 8 05/25/24 11:45 05/25/24 13:35 05/25/24 13:45 Temperature 100.2 F H Pulse Rate 112 H 101 H 103 H Respiratory Rate 16 17 18 Blood Pressure 97/55 L 114/63 105/64 Pulse Oximetry 92 94 94 Oxygen Delivery Room Air Room Air Room Air Oxygen Flow Rate 05/25/24 14:00 05/25/24 14:15 05/25/24 14:30 Temperature 100.2 F H 101.5 F H Pulse Rate 101 H 128 H 120 H Respiratory Rate 20 24 H 24 H Blood Pressure 122/68 142/72 H 128/74 Pulse Oximetry 96 97 94 Oxygen Delivery Room Air Room Air Room Air Oxygen Flow Rate 05/25/24 14:40 05/25/24 14:50 05/25/24 15:05 Temperature 103.3 F H 99.6 F 101.2 F H Pulse Rate 118 H 117 H 120 H Respiratory Rate 26 H 15 16 Blood Pressure 141/73 H 126/68 101/59 L Pulse Oximetry 94 95 94 Oxygen Delivery Room Air Nasal Cannula Nasal Cannula Oxygen Flow Rate 2 2 05/25/24 15:20 05/25/24 15:35 05/25/24 15:40 Temperature Pulse Rate 118 H 118 H 120 H Respiratory Rate 18 24 H 18 Blood Pressure 106/54 L 101/60 100/53 L Pulse Oximetry 93 93 96 Oxygen Delivery Nasal Cannula Nasal Cannula Room Air Oxygen Flow Rate 2 2 05/25/24 16:05 Temperature 99.7 F H Pulse Rate 114 H Respiratory Rate 17 Blood Pressure 105/59 L Pulse Oximetry 93 Oxygen Delivery Oxygen Flow Rate Intake/Output Intake/Output: Intake & Output 05/22/24 05/23/24 05/24/24 05/25/24 23:59 23:59 23:59 23:59 Intake Total 1250 Balance 1250 Meds/Results Medications: Active Medications Generic Name Dose Route Start Last Admin Trade Name Freq PRN Reason Stop Dose Admin Acetaminophen 650 mg 05/25/24 18:30 Acetaminophen 325 Mg Tablet PO Q4H PRN Mild Pain (1-3) or Fever Fentanyl Citrate 25 mcg 05/25/24 11:58 Fentanyl Citrate Inj (*Crx) 100 Mcg/2 Ml Vial IV PUSH Q2M PRN Pain Ceftriaxone Sodium 1 gm in 50 mls @ 100 mls/hr 05/26/24 09:00 Rocephin 1 Gm/Ns 50 Ml IVPB Q24H ALICIA Lactated Ringer's 1,000 mls @ 30 mls/hr 05/25/24 12:00 05/25/24 14:30 Lr - Lactated Ringers Iv IV CONT Infused .Q24H ALICIA Infusion Lactated Ringer's 1,000 mls @ 30 mls/hr 05/25/24 12:00 05/25/24 15:45 Lr - Lactated Ringers Iv IV CONT Infused .Q24H ALICIA Infusion Sodium Chloride 1,000 mls @ 100 mls/hr 05/25/24 15:20 Normal Saline Iv IV CONT .Q10H ALICIA Lactated Ringer's 1,000 mls @ 999 mls/hr 05/25/24 16:34 Lr - Lactated Ringers Iv IV CONT 05/25/24 17:34 .Q1H1M STA Ondansetron HCl 4 mg 05/25/24 11:58 Ondansetron Inj 4 Mg/2 Ml Vial IV PUSH ONCE PRN Nausea Radiology Results: ITS Impressions Abdomen/Pelvis CT 05/25/24 09:06 IMPRESSION: 1. 7 mm stone in an infundibulum in right kidney lower pole with mild hydronephrosis of the associated calyces. 2. 2 mm nonobstructing right kidney stone. Retrograde Pyelogram 05/25/24 15:15 IMPRESSION: 1. Right internal ureteral stent placement. Please refer to real-time procedural findings for details. Labs Labs: Laboratory Results - last 24 hr 05/25/24 05/25/24 07:43 09:11 WBC 12.3 H RBC 4.72 Hgb 12.7 L Hct 39.5 L MCV 83.7 MCH 26.9 MCHC 32.2 RDW 14.9 H Plt Count 355 MPV 10.0 Immature Gran % (Auto) 0.3 Neut % (Auto) 65.9 Lymph % (Auto) 26.5 [place] % (Auto) 5.8 Eos % (Auto) 1.0 Baso % (Auto) 0.5 Lymph # (Auto) 3.27 H [place] # (Auto) 0.7 H Eos # (Auto) 0.1 Baso # (Auto) 0.1 Abs Immat Gran (auto) 0.04 H Absolute Neuts (auto) 8.1 H Absolute Nucleated RBC 0.000 Nucleated RBC % 0.0 Sodium 139 Potassium 3.9 Chloride 103 Carbon Dioxide 21 L Anion Gap 15 H BUN 18 Creatinine 0.70 Estim Creat Clear Calc 89 Estimated GFR > 60 Glucose 113 H Calcium 9.4 Total Bilirubin 0.6 AST 25 ALT 18 Alkaline Phosphatase 75 Total Protein 8.0 Albumin 4.6 Urine Color Yellow Urine Appearance Clear Urine pH 7.5 Ur Specific [place] 1.016 Urine Protein Trace Urine Glucose (UA) Negative Urine Ketones Negative Ur Blood (Man) Non-hemolyzed trace Urine Nitrate Positive H Urine Bilirubin Negative Urine Urobilinogen 1.0 Leukocyte Esterase Rfl 2+ H Urine RBC 11-20 H Urine WBC 21-50 H Ur Squamous Epith Cells None seen Urine Bacteria 4+ H Urine Casts 0-2
[2024-05-25] MEDS: LACTATED RINGERS 1,000 ML 999 ML IV CONT (17:14)
[2024-05-25 17:31] LABS: Lactic Acid Reflex 1.9 mmol/L (0.7-2.0)
[2024-05-25 17:49] LABS: Procalcitonin 29.1 ng/mL
[2024-05-25] MEDS: SODIUM CHLORIDE 0.9% IV 1,000 ML 100 ML IV CONT (18:38)
[2024-05-25] MEDS: AZITHROMYCIN 500 MG/NS 250 ML 500 MG/250 ML BAG 250 MG IVPB (18:38)
[2024-05-25] MEDS: ACETAMINOPHEN 325 MG TABLET 650 MG PO (20:16)
[2024-05-25] MEDS: MORPHINE SULFATE (*CRX) 2 MG/ML INJ IV PUSH (21:46)
[2024-05-25] MEDS: HYDROcodone/acetaminophen (*CRX) 5-325 MG TABLET 1 TAB PO (23:51)
[2024-05-26] VITALS (10 sets, daily range): BP systolic 117–137; BP diastolic 68–75; PULSE 86–106; RESP 16–18; TEMP 36.9–38.7; O2SAT 92–98
[2024-05-26] MEDS: MORPHINE SULFATE (*CRX) 2 MG/ML INJ IV PUSH (03:38)
[2024-05-26] MEDS: ACETAMINOPHEN 325 MG TABLET 650 MG PO ×2 (04:42→20:39)
[2024-05-26] MEDS: LORATADINE 10 MG TABLET PO (05:09)
[2024-05-26] MEDS: SODIUM CHLORIDE 0.9% IV 1,000 ML 100 ML IV CONT (05:10)
[2024-05-26 05:44] LABS: Hemoglobin 11.1 g/dL (14.0-18.0); Mean Corpuscular HGB Conc 31.7 g/dl (32-36); Mean Corpuscular Hemoglobin 26.9 pg (26-34); Mean Platelet Volume 10.4 fl (7.4-10.4); Platelet Count Result 272 k/mm3 (150-375); Red Blood Count 4.12 M/mm3 (4.6-6.20); Red Cell Distribution Width 15.4 % (11.5-14.5); White Blood Count 18.5 K/mm3 (4.5-10.0)
[2024-05-26] MEDS: HYDROcodone/acetaminophen (*CRX) 5-325 MG TABLET 1 TAB PO (05:52)
[2024-05-26 05:57] LABS: Anion Gap 10 mmol/L (4-12); Blood Urea Nitrogen 18 mg/dL (9-20); Calcium 8.8 mg/dL (8.4-10.2); Carbon Dioxide 20 mmol/L (22-30); Chloride 107 mmol/L (98-107); Estimated CRCL calculation 70 ml/min; Estimated Glomerular Filt Rate > 60; Glucose 133 mg/dL (65-110); Potassium 3.6 mmol/L (3.4-5.0); Sodium 137 mmol/L (137-145)
--- NOTE | 2024-05-26 07:32 | P.PNAN_ITS ---
Anes - Prog Note Post-Op Date/Time: 05/26/24 07:32 Cardiovascular status: normal Respiratory status: normal Airway patency: baseline Mental status: baseline Post-Op hydration status: normal Vital Signs: Last Vital Signs Temp 38.7 C H 05/26/24 06:32 Pulse 86 05/26/24 05:07 Resp 18 05/26/24 05:07 BP 124/72 05/26/24 05:07 Pulse Ox 93 05/26/24 05:07 O2 Del Method Room Air 05/25/24 20:00 O2 Flow Rate 2 05/25/24 15:35 Pain Score (VAS): 1 I/O: Intake & Output 05/25/24 05/25/24 05/26/24 15:59 23:59 07:59 Intake Total 7686 597 8604 Output Total 350 Balance 1250 350 900 Laboratory Tests 05/26/24 05:28 05/26/24 05:28 05/25/24 05/25/24 05/25/24 07:43 09:11 16:57 WBC 12.3 H RBC 4.72 Hgb 12.7 L Hct 39.5 L MCV 83.7 MCH 26.9 MCHC 32.2 RDW 14.9 H Plt Count 355 MPV 10.0 Immature Gran % (Auto) 0.3 Neut % (Auto) 65.9 Lymph % (Auto) 26.5 [place] % (Auto) 5.8 Eos % (Auto) 1.0 Baso % (Auto) 0.5 Lymph # (Auto) 3.27 H [place] # (Auto) 0.7 H Eos # (Auto) 0.1 Baso # (Auto) 0.1 Abs Immat Gran (auto) 0.04 H Absolute Neuts (auto) 8.1 H Absolute Nucleated RBC 0.000 Nucleated RBC % 0.0 Sodium 139 Potassium 3.9 Chloride 103 Carbon Dioxide 21 L Anion Gap 15 H BUN 18 Creatinine 0.70 Estim Creat Clear Calc 89 Estimated GFR > 60 Glucose 113 H Lactic Acid 1.9 Calcium 9.4 Total Bilirubin 0.6 AST 25 ALT 18 Alkaline Phosphatase 75 Total Protein 8.0 Albumin 4.6 Procalcitonin 29.1 Urine Color Yellow Urine Appearance Clear Urine pH 7.5 Ur Specific [place] 1.016 Urine Protein Trace Urine Glucose (UA) Negative Urine Ketones Negative Ur Blood (Man) Non-hemolyzed trace Urine Nitrate Positive H Urine Bilirubin Negative Urine Urobilinogen 1.0 Leukocyte Esterase Rfl 2+ H Urine RBC 11-20 H Urine WBC 21-50 H Ur Squamous Epith Cells None seen Urine Bacteria 4+ H Urine Casts 0-2 05/26/24 05:28 WBC 18.5 H RBC 4.12 L Hgb 11.1 L Hct 35.0 L MCV 85.0 MCH 26.9 MCHC 31.7 L RDW 15.4 H Plt Count 272 MPV 10.4 Immature Gran % (Auto) Neut % (Auto) Lymph % (Auto) [place] % (Auto) Eos % (Auto) Baso % (Auto) Lymph # (Auto) [place] # (Auto) Eos # (Auto) Baso # (Auto) Abs Immat Gran (auto) Absolute Neuts (auto) Absolute Nucleated RBC Nucleated RBC % Sodium 137 Potassium 3.6 Chloride 107 Carbon Dioxide 20 L Anion Gap 10 BUN 18 Creatinine 0.90 Estim Creat Clear Calc 70 Estimated GFR > 60 Glucose 133 H Lactic Acid Calcium 8.8 Total Bilirubin AST ALT Alkaline Phosphatase Total Protein Albumin Procalcitonin Urine Color Urine Appearance Urine pH Ur Specific [place] Urine Protein Urine Glucose (UA) Urine Ketones Ur Blood (Man) Urine Nitrate Urine Bilirubin Urine Urobilinogen Leukocyte Esterase Rfl Urine RBC Urine WBC Ur Squamous Epith Cells Urine Bacteria Urine Casts Post-procedural complaints: none Patient Feedback: Patient satisfied with anesthetic care.
[2024-05-26] MEDS: MELOXICAM 7.5 MG TABLET PO (09:18)
[2024-05-26] MEDS: ASPIRIN 81 MG ENTERIC TABLET PO (09:18)
[2024-05-26] MEDS: ROSUVASTATIN 20 MG TABLET 40 MG PO (09:18)
[2024-05-26] MEDS: FLUTICASONE PROPIONATE 0.05% NA SPR 16 GM BTL (*BKC) 1 SPRAY NASAL ×2 (09:19→20:37)
--- NOTE | 2024-05-26 10:48 | PM.IMPN ---
Progress Note: A&P Assessment and Plan (1) Calculi, ureter: Code(s): N20.1 - Calculus of ureter Status: Acute (2) Abnormal urinalysis: Code(s): R82.90 - Unspecified abnormal findings in urine Status: Acute (3) Sepsis: Qualifiers: Sepsis type: sepsis due to unspecified organism Sepsis acute organ dysfunction status: without acute organ dysfunction Qualified Code(s): A41.9 - Sepsis, unspecified organism Code(s): A41.9 - Sepsis, unspecified organism Status: Acute (4) UTI (urinary tract infection): Qualifiers: Urinary tract infection type: acute cystitis Hematuria presence: without hematuria Qualified Code(s): N30.00 - Acute cystitis without hematuria Code(s): N39.0 - Urinary tract infection, site not specified Status: Acute Plan 74 y/o M presents here with right flank pain with PMH of coronary artery disease, hyperlipidemia, and priapism, seasonal allergies, 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 The patient presented here from home for further evaluation of right lower back pain and right flank pain. He reports onset 1 hours prior to arrival to the emergency department around 7:30 this morning. Pain woke the patient from his sleep around 6:15 am. He described as sharp/stabbing, radiation down his right leg, constant, and no aggravating or alleviating factors. Trialed heat at home without effect. Accompanied by hematuria 4 days prior to pain today. Flank pain is not accompanied by nausea, vomiting, precipitating injury, or dysuria. Patient denies previous history of kidney stones. Urology was consulted in the emergency department and patient went for a retrograde pyelogram with stent placement. However postprocedure patient developed fever of 103.3? F and tachycardia with max heart rate of 128. Admission for possible urosepsis. Cough noted during exam, however patient not reporting shortness of breath. Initial VS at presentation: 97.2? F, HR 75, RR 16, 146/81, and 100% on RA. ED workup showed: WBC 12.3, hemoglobin 12.7, creatinine 0.7 and number GFR, UA consistent with UTI. CT of the abdomen/pelvis showed a 7 mm stone in a infundibulum in right kidney lower pole with mild hydronephrosis of the associated calyces and 2 mm nonobstructing right kidney stone. ----- On the day of admission 05/25/2024 the patient underwent a cystoscopy, right retrograde pyelography, right ureteral stent placement by Dr. Bettencourt. He is advised by Urology to follow-up in the outpatient setting for definitive ESWL. And 05/26 his fever curve has come down last temperature 99.9?. His pain is greatly improved. Ceftriaxone 1 g Q 24 hours IV and azithromycin (to cover pneumonia) was started on admission. His cough has improved after loratadine was started. He reports seasonal allergies and takes Zyrtec at home. Azithromycin can be discontinued after 3 days. Currently his febrile illness is improving however his white count is now up at 18.5 from 12.3 on admission. His procalcitonin was very high on admission at 21. We will recheck that again daily. Considering the above, it would be prudent to continue to treat him with IV antibiotics and follow-up blood and urine cultures which are still pending. Constipation, start MiraLax daily which he takes at home. For pain control continue acetaminophen, [place], morphine p.r.n. and graduated fashion. Discontinue fentanyl. Discontinue fluids ----- F/E/N: saline lock IV, replace lytes as needed, cardiac diet GI prophylaxis: Not indicated DVT prophylaxis: Heparin subQ 5000 units b.i.d. Bowel regimen: MiraLax daily Lines: Peripheral IV Tele: Not needed Precautions: None Code Status: Patient wishes to be full code Dispo: Anticipate discharge to home, continue to treat febrile illness, sepsis, UTI -Living arrangements, functional status, significant history: Lives at home with spouse Agents of Abuse -Illicit drug abuse: Denies -ETOH abuse: Rarely -Tobacco/nicotine: Denies -Energy drinks: Denies -Additional supplements: Denies Note to the patient: The Century Cures Act makes medical notes like these available to patients in the interest of transparency. Please be advised this is a medical document. It is intended for [id number] communication. It is written in medical language and may contain unfamiliar abbreviations or verbiage. Components may appear blunt or direct. Medical documents are intended to carry relevant information, facts as evident, and the clinical opinion of the practitioner at the time of the encounter. This note was generated by a speech recognition system and may contain inherent errors or omissions not intended by the user. Grammatical errors, random word insertions, deletions, pronoun errors and incomplete sentences are occasional consequences of this technology due to software limitations. Not all errors are caught or corrected. If there are questions or concerns about the content of this note or information contained within the body of this dictation they should be addressed directly with author for clarification. The file time of this note does not necessarily represent the time the patient was seen. Subjective Date/time seen: 05/26/24 10:48 Interval history: No acute overnight events. Brother and [id number] at bedside. He reports pain is greatly improved, mild only now. 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 His cough has resolved after he was given antihistamine. Denies abdominal pain/nausea/vomiting. His breathing is good. Review of Systems Review of Systems: All systems reviewed & are unremarkable except as noted in HPI and below (Subjective) Exam Const: General: comfortable and no acute distress Other: A&O x3 Eyes: Pupils: Equal, round and reactive pupils present Neck: Neck: supple Resp: Effort & Inspection: normal respiratory effort Auscultation: clear to auscultation bilaterally Cardio: Rate: regular rate Rhythm: regular rhythm GI: GI Palp: Yes Soft to palpation and No Tenderness to palpation present (GI) Urinary Catheter: Urinary Catheter: urine dark Extrem: General: no edema Objective Data Vital Signs Vital Signs: Vital Signs - 24 hr 05/25/24 11:06 05/25/24 13:27 05/25/24 11:45 Temperature 98.1 F 100.2 F H Pulse Rate 113 H 106 H 112 H Respiratory Rate 20 19 16 Blood Pressure 119/63 98/61 L 97/55 L Pulse Oximetry 91 98 92 Oxygen Delivery Simple Face Mask Room Air Oxygen Flow Rate 8 05/25/24 13:35 05/25/24 13:45 05/25/24 14:00 Temperature 100.2 F H Pulse Rate 101 H 103 H 101 H Respiratory Rate 17 18 20 Blood Pressure 114/63 105/64 122/68 Pulse Oximetry 94 94 96 Oxygen Delivery Room Air Room Air Room Air Oxygen Flow Rate 05/25/24 14:15 05/25/24 14:30 05/25/24 14:40 Temperature 101.5 F H 103.3 F H Pulse Rate 128 H 120 H 118 H Respiratory Rate 24 H 24 H 26 H Blood Pressure 142/72 H 128/74 141/73 H Pulse Oximetry 97 94 94 Oxygen Delivery Room Air Room Air Room Air Oxygen Flow Rate 05/25/24 14:50 05/25/24 15:05 05/25/24 15:20 Temperature 99.6 F 101.2 F H Pulse Rate 117 H 120 H 118 H Respiratory Rate 15 16 18 Blood Pressure 126/68 101/59 L 106/54 L Pulse Oximetry 95 94 93 Oxygen Delivery Nasal Cannula Nasal Cannula Nasal Cannula Oxygen Flow Rate 2 2 2 05/25/24 15:35 05/25/24 15:40 05/25/24 16:05 Temperature 99.7 F H Pulse Rate 118 H 120 H 114 H Respiratory Rate 24 H 18 17 Blood Pressure 101/60 100/53 L 105/59 L Pulse Oximetry 93 96 93 Oxygen Delivery Nasal Cannula Room Air Oxygen Flow Rate 2 05/25/24 20:16 05/25/24 20:22 05/25/24 21:22 Temperature 101.3 F H 101.2 F H 101.5 F H Pulse Rate 100 Respiratory Rate 20 Blood Pressure 107/64 Pulse Oximetry 95 Oxygen Delivery Oxygen Flow Rate 05/25/24 21:15 05/25/24 20:00 05/25/24 22:46 Temperature 101 F H 101.2 F H Pulse Rate Respiratory Rate Blood Pressure Pulse Oximetry Oxygen Delivery Room Air Oxygen Flow Rate 05/26/24 00:03 05/26/24 04:42 05/26/24 05:07 Temperature 100.7 F H 100.7 F H 100.8 F H Pulse Rate 90 86 Respiratory Rate 18 18 Blood Pressure 117/72 124/72 Pulse Oximetry 93 93 Oxygen Delivery Oxygen Flow Rate 05/26/24 06:31 05/26/24 06:32 05/26/24 08:02 Temperature 101 F H 101.7 F H 99.9 F H Pulse Rate 89 Respiratory Rate 17 Blood Pressure 124/70 Pulse Oximetry 93 Oxygen Delivery Oxygen Flow Rate Intake/Output Intake/Output: Intake & Output 05/23/24 05/24/24 05/25/24 05/26/24 23:59 23:59 23:59 23:59 Intake Total 1600 1250 Output Total 350 Balance 1600 900 Meds/Results Medications: Active Medications Generic Name Dose Route Start Last Admin Trade Name Freq PRN Reason Stop Dose Admin Acetaminophen 650 mg 05/25/24 18:30 05/26/24 04:42 Acetaminophen 325 Mg Tablet PO 650 mg Q4H PRN Administration Mild Pain (1-3) or Fever Hydrocodone Bitart/Acetaminophen 1 tab 05/25/24 21:36 05/26/24 05:52 Hydrocodone/Acetaminophen (*Crx) 5-325 Mg Tablet PO 1 tab Q4H PRN Administration Pain Rated 4-6 Aspirin 81 mg 05/26/24 09:00 05/26/24 09:18 Aspirin 81 Mg Enteric Tablet PO 81 mg DAILY ALICIA Administration Fentanyl Citrate 25 mcg 05/25/24 11:58 Fentanyl Citrate Inj (*Crx) 100 Mcg/2 Ml Vial IV PUSH Q2M PRN Pain Fluticasone Propionate 1 spray 05/26/24 09:00 05/26/24 09:19 Fluticasone Propionate 0.05% Na Spr 16 Gm Btl (*Bkc) NASAL 1 spray Q12HR ALICIA Administration Heparin Sodium (Porcine) 5,000 units 05/26/24 10:50 Heparin Sodium 5,000 Units/Ml Vial SUB-Q Q12HR ALICIA Ceftriaxone Sodium 1 gm in 50 mls @ 100 mls/hr 05/26/24 09:00 05/26/24 09:18 Rocephin 1 Gm/Ns 50 Ml IVPB 100 mls/hr Q24H ALICIA Administration Azithromycin 500 mg in 250 mls @ 250 mls/hr 05/25/24 18:00 05/25/24 18:38 Zithromax IVPB 250 mls/hr Q24H ALICIA Administration Loratadine 10 mg 05/26/24 05:00 05/26/24 05:09 Loratadine 10 Mg Tablet PO 10 mg QAM ALICIA Administration Morphine Sulfate 2 mg 05/25/24 21:36 05/26/24 03:38 Morphine Sulfate (*Crx) 2 Mg/Ml Inj IV PUSH 2 mg Q4H PRN Administration Pain Rated 7-10 Non-Formulary Medication 5 mg 05/26/24 09:00 Tadalafil [Cialis] PO 06/25/24 08:59 DAILY [facility] Non-Formulary Medication 100 mg 05/25/24 17:42 Sildenafil PO DAILY PRN NNA Ondansetron HCl 4 mg 05/25/24 11:58 Ondansetron Inj 4 Mg/2 Ml Vial IV PUSH ONCE PRN Nausea Polyethylene Glycol 17 gm 05/26/24 10:45 Polyethylene Glycol 3350 17 Gm Powd.Pack PO QAM [facility] Rosuvastatin Calcium 40 mg 05/26/24 09:00 05/26/24 09:18 Rosuvastatin 20 Mg Tablet PO 40 mg DAILY [facility] Administration Radiology Results: ITS Impressions Abdomen/Pelvis CT 05/25/24 09:06 IMPRESSION: 1. 7 mm stone in an infundibulum in right kidney lower pole with mild hydronephrosis of the associated calyces. 2. 2 mm nonobstructing right kidney stone. Retrograde Pyelogram 05/25/24 15:15 IMPRESSION: 1. Right internal ureteral stent placement. Please refer to real-time procedural findings for details. Chest X-Ray 05/25/24 17:05 IMPRESSION: Prominent markings in the lower lobes. Early pneumonia in the right lung base is not excluded. Follow-up advised Labs Labs: Laboratory Results - last 24 hr 05/25/24 05/26/24 16:57 05:28 WBC 18.5 H RBC 4.12 L Hgb 11.1 L Hct 35.0 L MCV 85.0 MCH 26.9 MCHC 31.7 L RDW 15.4 H Plt Count 272 MPV 10.4 Sodium 137 Potassium 3.6 Chloride 107 Carbon Dioxide 20 L Anion Gap 10 BUN 18 Creatinine 0.90 Estim Creat Clear Calc 70 Estimated GFR > 60 Glucose 133 H Lactic Acid 1.9 Calcium 8.8 Procalcitonin 29.1
[2024-05-26] MEDS: HEPARIN SODIUM 5,000 UNITS/ML VIAL 5000 UNITS SUB-Q ×2 (12:52→20:37)
[2024-05-26] MEDS: polyethylene glycoL 3350 17 GM POWD.PACK PO (12:52)
[2024-05-26] MEDS: ONDANSETRON INJ 4 MG/2 ML VIAL IV PUSH (16:35)
[2024-05-26] MEDS: AZITHROMYCIN 500 MG/NS 250 ML 500 MG/250 ML BAG 250 MG IVPB (18:18)
[2024-05-27] MEDS: HYDROcodone/acetaminophen (*CRX) 5-325 MG TABLET 1 TAB PO ×3 (02:44→14:20)
[2024-05-27] MEDS: LORATADINE 10 MG TABLET PO (03:29)
[2024-05-27 05:40] VITALS: BP 114/70; PULSE 86; RESP 18; TEMP 37.1; O2SAT 95
[2024-05-27 06:37] LABS: Basophils Percent Auto 0.2 % (0.2-1.2); Eosinophils Absolute Auto 0.1 K/mm3 (0-0.3); Eosinophils Percent Auto 0.5 % (0-4.4); Hematocrit 32.6 % (42.0-52.0); Hemoglobin 10.4 g/dL (14.0-18.0); Immature Granulocyte Absolute 0.14 K/mm3 (0.00-0.031); Immature Granulocyte Percent A 0.8 % (0-0.5); Lymphocytes Absolute Auto 1.66 K/mm3 (0.9-3.2); Lymphocytes Percent Auto 9.6 % (18.3-44.2); Mean Corpuscular HGB Conc 31.9 g/dl (32-36); Mean Corpuscular Volume 84.7 fl (80-100); Mean Platelet Volume 10.6 fl (7.4-10.4); Monocytes Absolute Auto 1.3 K/mm3 (0.1-0.6); Monocytes Percent Auto 7.3 % (2.6-8.5); Neutrophils Absolute Auto 14.2 K/mm3 (1.3-6.7); Neutrophils Percent Auto 81.6 % (45.5-73.1); Platelet Count Result 243 k/mm3 (150-375); Red Blood Count 3.85 M/mm3 (4.6-6.20); Red Cell Distribution Width 15.3 % (11.5-14.5); White Blood Count 17.4 K/mm3 (4.5-10.0)
[2024-05-27 06:55] LABS: Anion Gap 8 mmol/L (4-12); Blood Urea Nitrogen 13 mg/dL (9-20); Calcium 8.5 mg/dL (8.4-10.2); Carbon Dioxide 24 mmol/L (22-30); Chloride 103 mmol/L (98-107); Estimated CRCL calculation 89 ml/min; Estimated Glomerular Filt Rate > 60; Glucose 115 mg/dL (65-110); Magnesium 2.1 mg/dL (1.6-2.3); Potassium 3.6 mmol/L (3.4-5.0); Sodium 135 mmol/L (137-145)
[2024-05-27] MEDS: ASPIRIN 81 MG ENTERIC TABLET PO (07:25)
[2024-05-27] MEDS: ROSUVASTATIN 20 MG TABLET 40 MG PO (07:26)
[2024-05-27] MEDS: HEPARIN SODIUM 5,000 UNITS/ML VIAL 5000 UNITS SUB-Q ×2 (07:26→20:14)
[2024-05-27] MEDS: polyethylene glycoL 3350 17 GM POWD.PACK PO (07:27)
--- NOTE | 2024-05-27 12:11 | PM.IMPN ---
Progress Note: A&P Assessment and Plan (1) Calculi, ureter: Code(s): N20.1 - Calculus of ureter Status: Acute (2) Abnormal urinalysis: Code(s): R82.90 - Unspecified abnormal findings in urine Status: Acute (3) Sepsis: Qualifiers: Sepsis type: sepsis due to unspecified organism Sepsis acute organ dysfunction status: without acute organ dysfunction Qualified Code(s): A41.9 - Sepsis, unspecified organism Code(s): A41.9 - Sepsis, unspecified organism Status: Acute (4) UTI (urinary tract infection): Qualifiers: Urinary tract infection type: acute cystitis Hematuria presence: without hematuria Qualified Code(s): N30.00 - Acute cystitis without hematuria Code(s): N39.0 - Urinary tract infection, site not specified Status: Acute Plan 74 y/o M presents here with right flank pain with PMH of coronary artery disease, hyperlipidemia, and priapism, seasonal allergies, osteoarthritis, 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 The patient presented here from home for further evaluation of right lower back pain and right flank pain. He reports onset 1 hours prior to arrival to the emergency department around 7:30 this morning. Pain woke the patient from his sleep around 6:15 am. He described as sharp/stabbing, radiation down his right leg, constant, and no aggravating or alleviating factors. Trialed heat at home without effect. Accompanied by hematuria 4 days prior to pain today. Flank pain is not accompanied by nausea, vomiting, precipitating injury, or dysuria. Patient denies previous history of kidney stones. Urology was consulted in the emergency department and patient went for a retrograde pyelogram with stent placement. However postprocedure patient developed fever of 103.3? F and tachycardia with max heart rate of 128. Admission for possible urosepsis. Cough noted during exam, however patient not reporting shortness of breath. Initial VS at presentation: 97.2? F, HR 75, RR 16, 146/81, and 100% on RA. ED workup showed: WBC 12.3, hemoglobin 12.7, creatinine 0.7 and number GFR, UA consistent with UTI. CT of the abdomen/pelvis showed a 7 mm stone in a infundibulum in right kidney lower pole with mild hydronephrosis of the associated calyces and 2 mm nonobstructing right kidney stone. ----- On the day of admission 05/25/2024 the patient underwent a cystoscopy, right retrograde pyelography, right ureteral stent placement by Dr. Bettencourt. He is advised by Urology to follow-up in the outpatient setting for definitive ESWL. And 05/26 his fever curve has come down last temperature 99.9?. His pain is greatly improved. Ceftriaxone 1 g Q 24 hours IV and azithromycin (to cover pneumonia) was started on admission. His cough has improved after loratadine was started. He reports seasonal allergies and takes Zyrtec at home. Azithromycin can be discontinued after 3 days. Currently his febrile illness is improving however his white count is now up at 18.5 from 12.3 on admission. His procalcitonin was very high on admission at 21. We will recheck that again daily. Considering the above, it would be prudent to continue to treat him with IV antibiotics and follow-up blood and urine cultures which are still pending. Constipation, start MiraLax daily which he takes at home. For pain control continue acetaminophen, [place], morphine p.r.n. and graduated fashion. Discontinue fentanyl. Discontinue fluids On 05/26/2024 the patient is afebrile. His leukocytosis is mildly improved. He is doing better other we will continue to monitor him for today considering his white count is still high and his pain is not quite yet controlled. Also, importantly his urine cultures growing Gram-negative bacilli but we do not have sensitivities so we will await those. For now continue current antibiotics. Continue pain control. Discussed the interactions of heparin and meloxicam and the patient reports he can wait to restart the meloxicam. Since tomorrow may be a discharge day will check a CBC with differential and procalcitonin to help delineate disposition decisions. Procalcitonin has come down very nicely in a graduated fashion. For his constipation, he has not had a bowel movement since the day prior to admission and takes MiraLax daily at home. Continue that and start Senokot 1 tab p.o. q.h.s. 1 tab now and again tonight. ----- F/E/N: saline lock IV, replace lytes as needed, cardiac diet GI prophylaxis: Not indicated DVT prophylaxis: Heparin subQ 5000 units b.i.d. Bowel regimen: MiraLax daily Lines: Peripheral IV Tele: Not needed Precautions: None Code Status: Patient wishes to be full code Dispo: Anticipate discharge to home, continue to treat febrile illness, sepsis, UTI -Living arrangements, functional status, significant history: Lives at home with spouse Agents of Abuse -Illicit drug abuse: Denies -ETOH abuse: Rarely -Tobacco/nicotine: Denies -Energy drinks: Denies -Additional supplements: Denies Note to the patient: The Century Cures Act makes medical notes like these available to patients in the interest of transparency. Please be advised this is a medical document. It is intended for [id number] communication. It is written in medical language and may contain unfamiliar abbreviations or verbiage. Components may appear blunt or direct. Medical documents are intended to carry relevant information, facts as evident, and the clinical opinion of the practitioner at the time of the encounter. This note was generated by a speech recognition system and may contain inherent errors or omissions not intended by the user. Grammatical errors, random word insertions, deletions, pronoun errors and incomplete sentences are occasional consequences of this technology due to software limitations. Not all errors are caught or corrected. If there are questions or concerns about the content of this note or information contained within the body of this dictation they should be addressed directly with author for clarification. The file time of this note does not necessarily represent the time the patient was seen. Subjective Date/time seen: 05/27/24 12:11 Interval history: Overnight the patient reports episode of right flank pain which was severe but has now resolved. He received 2 doses of p.r.n. narcotic. This morning he is overall better but complains of some dullness/discomfort in the right lower quadrant which he thinks is attributed to constipation. He has no other complaints including fever chest pain shortness of breath. He requests with meloxicam for arthritis Review of Systems Review of Systems: All systems reviewed & are unremarkable except as noted in HPI and below (Subjective) Exam Const: General: comfortable and no acute distress Other: A&O x3 Eyes: Pupils: Equal, round and reactive pupils present Neck: Neck: supple Resp: Effort & Inspection: normal respiratory effort Auscultation: clear to auscultation bilaterally Cardio: Rate: regular rate Rhythm: regular rhythm GI: GI Palp: Yes Soft to palpation and No Tenderness to palpation present (GI) Extrem: General: no edema Objective Data Vital Signs Vital Signs: Vital Signs - 24 hr 05/26/24 12:45 05/26/24 17:34 05/26/24 21:10 Temperature 98.6 F 98.5 F 99.6 F Pulse Rate 89 106 H 95 Respiratory Rate 16 17 18 Blood Pressure 121/71 137/68 120/75 Pulse Oximetry 98 92 96 Oxygen Delivery 05/26/24 20:00 05/27/24 05:40 05/27/24 08:00 Temperature 98.8 F Pulse Rate 86 Respiratory Rate 18 Blood Pressure 114/70 Pulse Oximetry 95 Oxygen Delivery Room Air Room Air Intake/Output Intake/Output: Intake & Output 05/24/24 05/25/24 05/26/24 05/27/24 23:59 23:59 23:59 23:59 Intake Total 1850 2570 370 Output Total 750 Balance 1850 1820 370 Meds/Results Medications: Active Medications Generic Name Dose Route Start Last Admin Trade Name Freq PRN Reason Stop Dose Admin Acetaminophen 650 mg 05/25/24 18:30 05/26/24 20:39 Acetaminophen 325 Mg Tablet PO 650 mg Q4H PRN Administration Mild Pain (1-3) or Fever Hydrocodone Bitart/Acetaminophen 1 tab 05/25/24 21:36 05/27/24 07:24 Hydrocodone/Acetaminophen (*Crx) 5-325 Mg Tablet PO 1 tab Q4H PRN Administration Pain Rated 4-6 Aspirin 81 mg 05/26/24 09:00 05/27/24 07:25 Aspirin 81 Mg Enteric Tablet PO 81 mg DAILY ALICIA Administration Fluticasone Propionate 1 spray 05/26/24 09:00 05/26/24 20:37 Fluticasone Propionate 0.05% Na Spr 16 Gm Btl (*Bkc) NASAL 1 spray Q12HR ALICIA Administration Heparin Sodium (Porcine) 5,000 units 05/26/24 10:50 05/27/24 07:26 Heparin Sodium 5,000 Units/Ml Vial SUB-Q 5,000 units Q12HR ALICIA Administration Ceftriaxone Sodium 1 gm in 50 mls @ 100 mls/hr 05/26/24 09:00 05/27/24 07:26 Rocephin 1 Gm/Ns 50 Ml IVPB 100 mls/hr Q24H ALICIA Administration Azithromycin 500 mg in 250 mls @ 250 mls/hr 05/25/24 18:00 05/26/24 18:18 Zithromax IVPB 250 mls/hr Q24H ALICIA Administration Loratadine 10 mg 05/26/24 05:00 05/27/24 03:29 Loratadine 10 Mg Tablet PO 10 mg QAM ALICIA Administration Morphine Sulfate 2 mg 05/25/24 21:36 05/26/24 03:38 Morphine Sulfate (*Crx) 2 Mg/Ml Inj IV PUSH 2 mg Q4H PRN Administration Pain Rated 7-10 Ondansetron HCl 4 mg 05/25/24 11:58 05/26/24 16:35 Ondansetron Inj 4 Mg/2 Ml Vial IV PUSH 4 mg ONCE PRN Administration Nausea Polyethylene Glycol 17 gm 05/26/24 10:45 05/27/24 07:27 Polyethylene Glycol 3350 17 Gm Powd.Pack PO 17 gm QAM [facility] Administration Rosuvastatin Calcium 40 mg 05/26/24 09:00 05/27/24 07:26 Rosuvastatin 20 Mg Tablet PO 40 mg DAILY ALICIA Administration Senna/Docusate Sodium 1 tab 05/27/24 12:10 Senna/Docusate Sodium Tablet PO HS [facility] Radiology Results: ITS Impressions Abdomen/Pelvis CT 05/25/24 09:06 IMPRESSION: 1. 7 mm stone in an infundibulum in right kidney lower pole with mild hydronephrosis of the associated calyces. 2. 2 mm nonobstructing right kidney stone. Retrograde Pyelogram 05/25/24 15:15 IMPRESSION: 1. Right internal ureteral stent placement. Please refer to real-time procedural findings for details. Chest X-Ray 05/25/24 17:05 IMPRESSION: Prominent markings in the lower lobes. Early pneumonia in the right lung base is not excluded. Follow-up advised Labs Labs: Laboratory Results - last 24 hr 05/27/24 06:20 WBC 17.4 H RBC 3.85 L Hgb 10.4 L Hct 32.6 L MCV 84.7 MCH 27.0 MCHC 31.9 L RDW 15.3 H Plt Count 243 MPV 10.6 H Immature Gran % (Auto) 0.8 H Neut % (Auto) 81.6 H Lymph % (Auto) 9.6 L [place] % (Auto) 7.3 Eos % (Auto) 0.5 Baso % (Auto) 0.2 Lymph # (Auto) 1.66 [place] # (Auto) 1.3 H Eos # (Auto) 0.1 Baso # (Auto) 0.0 Abs Immat Gran (auto) 0.14 H Absolute Neuts (auto) 14.2 H Absolute Nucleated RBC 0.000 Nucleated RBC % 0.0 Sodium 135 L Potassium 3.6 Chloride 103 Carbon Dioxide 24 Anion Gap 8 BUN 13 D Creatinine 0.70 Estim Creat Clear Calc 89 Estimated GFR > 60 Glucose 115 H Calcium 8.5 Magnesium 2.1 Procalcitonin 17.0
[2024-05-27] MEDS: SENNA/DOCUSATE SODIUM TABLET 1 TAB PO ×2 (13:04→20:14)
[2024-05-27] MEDS: FLUTICASONE PROPIONATE 0.05% NA SPR 16 GM BTL (*BKC) 1 SPRAY NASAL ×2 (13:07→20:14)
[2024-05-27 15:18] VITALS: BP 121/68; PULSE 100; RESP 12; TEMP 37.9; O2SAT 94
[2024-05-27] MEDS: AZITHROMYCIN 500 MG/NS 250 ML 500 MG/250 ML BAG 250 MG IVPB (16:31)
[2024-05-27 22:00] VITALS: BP 129/72; PULSE 71; RESP 16; TEMP 37.7; O2SAT 94
[2024-05-28] MEDS: HYDROcodone/acetaminophen (*CRX) 5-325 MG TABLET 1 TAB PO ×2 (01:18→13:34)
[2024-05-28 06:00] VITALS: BP 127/78; PULSE 86; RESP 18; TEMP 37; O2SAT 99
[2024-05-28 06:52] LABS: Basophils Absolute Auto 0.1 K/mm3 (0.0-0.1); Basophils Percent Auto 0.4 % (0.2-1.2); Eosinophils Absolute Auto 0.1 K/mm3 (0-0.3); Eosinophils Percent Auto 0.7 % (0-4.4); Hematocrit 32.5 % (42.0-52.0); Hemoglobin 10.7 g/dL (14.0-18.0); Immature Granulocyte Absolute 0.09 K/mm3 (0.00-0.031); Immature Granulocyte Percent A 0.7 % (0-0.5); Lymphocytes Absolute Auto 1.98 K/mm3 (0.9-3.2); Lymphocytes Percent Auto 14.8 % (18.3-44.2); Mean Corpuscular HGB Conc 32.9 g/dl (32-36); Mean Corpuscular Hemoglobin 27.4 pg (26-34); Mean Corpuscular Volume 83.1 fl (80-100); Mean Platelet Volume 10.5 fl (7.4-10.4); Monocytes Absolute Auto 1.1 K/mm3 (0.1-0.6); Monocytes Percent Auto 8.3 % (2.6-8.5); Neutrophils Percent Auto 75.1 % (45.5-73.1); Platelet Count Result 245 k/mm3 (150-375); Red Blood Count 3.91 M/mm3 (4.6-6.20); Red Cell Distribution Width 14.9 % (11.5-14.5); White Blood Count 13.4 K/mm3 (4.5-10.0)
[2024-05-28 07:00] LABS: Anion Gap 11 mmol/L (4-12); Blood Urea Nitrogen 10 mg/dL (9-20); Calcium 8.7 mg/dL (8.4-10.2); Carbon Dioxide 24 mmol/L (22-30); Chloride 100 mmol/L (98-107); Estimated CRCL calculation 79 ml/min; Estimated Glomerular Filt Rate > 60; Glucose 107 mg/dL (65-110); Magnesium 2.1 mg/dL (1.6-2.3); Potassium 3.9 mmol/L (3.4-5.0); Sodium 135 mmol/L (137-145)
[2024-05-28 07:17] LABS: Procalcitonin 8.2 ng/mL
[2024-05-28] MEDS: ROSUVASTATIN 20 MG TABLET 40 MG PO (08:17)
[2024-05-28] MEDS: ASPIRIN 81 MG ENTERIC TABLET PO (08:18)
[2024-05-28] MEDS: LORATADINE 10 MG TABLET PO (08:18)
[2024-05-28] MEDS: polyethylene glycoL 3350 17 GM POWD.PACK PO (08:18)
[2024-05-28] MEDS: FLUTICASONE PROPIONATE 0.05% NA SPR 16 GM BTL (*BKC) 1 SPRAY NASAL (08:18)
[2024-05-28] MEDS: HEPARIN SODIUM 5,000 UNITS/ML VIAL 5000 UNITS SUB-Q (08:18)
--- NOTE | 2024-05-28 09:14 | WPDUROPN2 ---
Progress Note: A&P Assessment and Plan (1) Right renal stone: Code(s): N20.0 - Calculus of kidney Status: Acute Assessment and Plan: Underwent cystoscopy, right retrograde pyelogram, right ureteral stent placement on 05/25/2024. Tolerated procedure well. Plan for outpatient surgical follow-up for definitive stone management (2) Hydronephrosis: Qualifiers: Hydronephrosis type: with renal calculous obstruction Qualified Code(s): N13.2 - Hydronephrosis with renal and ureteral calculous obstruction Code(s): N13.30 - Unspecified hydronephrosis Status: Acute Assessment and Plan: S/p right ureteral stent as above (3) UTI (urinary tract infection): Qualifiers: Urinary tract infection type: acute cystitis Hematuria presence: without hematuria Qualified Code(s): N30.00 - Acute cystitis without hematuria Code(s): N39.0 - Urinary tract infection, site not specified Status: Acute Assessment and Plan: Preliminary urine culture with Gram-negative bacilli. Continue empiric antibiotics while awaiting final culture results. Preliminary blood cultures negative to date. Fever curve improving and he is afebrile so far today. WBC improved, 13.4 Subjective Subjective Date/Time Seen: 05/28/24 09:14 Interval history: Karthik is feeling slightly better today but still overall feeling poor. Biggest complaint is that of constipation. He endorses dysuria and hematuria without clots. Still having flank pain but reports improvement today. Denies nausea, vomiting, fever, chills. Review of Systems Review of Systems: All systems reviewed & are unremarkable except as noted in HPI and below Exam Narrative: General: Awake, alert, comfortable, no acute distress HEENT: Normocephalic, atraumatic, sclerae anicteric Respiratory: Normal respiratory effort, no accessory muscle use Abdomen: Nondistended, soft, nontender Skin: Normal coloration, warm and dry Neurologic: No focal neuro deficits noted Psychiatric: Appropriate mood and affect, judgment and insight intact Objective Data Vital Signs Vital Signs: Vital Signs - 24 hr 05/27/24 15:18 05/27/24 22:00 05/28/24 06:00 Temperature 100.3 F H 100 F H 98.6 F Pulse Rate 100 71 86 Respiratory Rate 12 16 18 Blood Pressure 121/68 129/72 127/78 Pulse Oximetry 94 94 99 Intake/Output Intake/Output: Intake & Output 05/25/24 05/26/24 05/27/24 05/28/24 23:59 23:59 23:59 23:59 Intake Total 1850 2570 1010 540 Output Total 750 Balance 1850 1820 1010 540 Meds/Results Medications: Active Medications Generic Name Dose Route Start Last Admin Trade Name Freq PRN Reason Stop Dose Admin Acetaminophen 650 mg 05/25/24 18:30 05/26/24 20:39 Acetaminophen 325 Mg Tablet PO 650 mg Q4H PRN Administration Mild Pain (1-3) or Fever Hydrocodone Bitart/Acetaminophen 1 tab 05/25/24 21:36 05/28/24 01:18 Hydrocodone/Acetaminophen (*Crx) 5-325 Mg Tablet PO 1 tab Q4H PRN Administration Pain Rated 4-6 Aspirin 81 mg 05/26/24 09:00 05/28/24 08:18 Aspirin 81 Mg Enteric Tablet PO 81 mg DAILY ALICIA Administration Fluticasone Propionate 1 spray 05/26/24 09:00 05/28/24 08:18 Fluticasone Propionate 0.05% Na Spr 16 Gm Btl (*Bkc) NASAL 1 spray Q12HR ALICIA Administration Heparin Sodium (Porcine) 5,000 units 05/26/24 10:50 05/28/24 08:18 Heparin Sodium 5,000 Units/Ml Vial SUB-Q 5,000 units Q12HR ALICIA Administration Ceftriaxone Sodium 1 gm in 50 mls @ 100 mls/hr 05/26/24 09:00 05/28/24 08:18 Rocephin 1 Gm/Ns 50 Ml IVPB 100 mls/hr Q24H ALICIA Administration Azithromycin 500 mg in 250 mls @ 250 mls/hr 05/25/24 18:00 05/27/24 16:31 Zithromax IVPB 250 mls/hr Q24H ALICIA Administration Loratadine 10 mg 05/26/24 05:00 05/28/24 08:18 Loratadine 10 Mg Tablet PO 10 mg QAM ALICIA Administration Morphine Sulfate 2 mg 05/25/24 21:36 05/26/24 03:38 Morphine Sulfate (*Crx) 2 Mg/Ml Inj IV PUSH 2 mg Q4H PRN Administration Pain Rated 7-10 Ondansetron HCl 4 mg 05/25/24 11:58 05/26/24 16:35 Ondansetron Inj 4 Mg/2 Ml Vial IV PUSH 4 mg ONCE PRN Administration Nausea Polyethylene Glycol 17 gm 05/26/24 10:45 05/28/24 08:18 Polyethylene Glycol 3350 17 Gm Powd.Pack PO 17 gm QAM ALICIA Administration Rosuvastatin Calcium 40 mg 05/26/24 09:00 05/28/24 08:17 Rosuvastatin 20 Mg Tablet PO 40 mg DAILY ALICIA Administration Senna/Docusate Sodium 1 tab 05/27/24 12:10 05/27/24 20:14 Senna/Docusate Sodium Tablet PO 1 tab HS ALICIA Administration Radiology Results: ITS Impressions Abdomen/Pelvis CT 05/25/24 09:06 IMPRESSION: 1. 7 mm stone in an infundibulum in right kidney lower pole with mild hydronephrosis of the associated calyces. 2. 2 mm nonobstructing right kidney stone. Retrograde Pyelogram 05/25/24 15:15 IMPRESSION: 1. Right internal ureteral stent placement. Please refer to real-time procedural findings for details. Chest X-Ray 05/25/24 17:05 IMPRESSION: Prominent markings in the lower lobes. Early pneumonia in the right lung base is not excluded. Follow-up advised Labs Labs: Laboratory Results - last 24 hr 05/28/24 06:40 WBC 13.4 H RBC 3.91 L Hgb 10.7 L Hct 32.5 L MCV 83.1 MCH 27.4 MCHC 32.9 RDW 14.9 H Plt Count 245 MPV 10.5 H Immature Gran % (Auto) 0.7 H Neut % (Auto) 75.1 H Lymph % (Auto) 14.8 L [place] % (Auto) 8.3 Eos % (Auto) 0.7 Baso % (Auto) 0.4 Lymph # (Auto) 1.98 [place] # (Auto) 1.1 H Eos # (Auto) 0.1 Baso # (Auto) 0.1 Abs Immat Gran (auto) 0.09 H Absolute Neuts (auto) 10.0 H Absolute Nucleated RBC 0.000 Nucleated RBC % 0.0 Sodium 135 L Potassium 3.9 Chloride 100 Carbon Dioxide 24 Anion Gap 11 BUN 10 Creatinine 0.80 Estim Creat Clear Calc 79 Estimated GFR > 60 Glucose 107 Calcium 8.7 Magnesium 2.1 Procalcitonin 8.2
[2024-05-28 10:59] LABS: INR 1.1; Prothrombin Time 14.2 Seconds (11.1-14.7)
[2024-05-28 11:00] LABS: Partial Thromboplastin Time 32.2 Seconds (22.3-36.8)
[2024-05-28 14:00] VITALS: BP 124/78; PULSE 96; RESP 16; TEMP 37; O2SAT 90
--- NOTE | 2024-05-28 14:41 | PM.DS ---
DS: Admitting Diagnosis Discharge Date 05/28/2024 Admitting Diagnosis Sepsis DS: Discharge Diagnosis Discharge Diagnosis (1) Calculi, ureter: Code(s): N20.1 - Calculus of ureter Status: Acute (2) Abnormal urinalysis: Code(s): R82.90 - Unspecified abnormal findings in urine Status: Acute (3) Sepsis: Qualifiers: Sepsis acute organ dysfunction status: without acute organ dysfunction Sepsis type: sepsis due to unspecified organism Qualified Code(s): A41.9 - Sepsis, unspecified organism Code(s): A41.9 - Sepsis, unspecified organism Status: Acute (4) UTI (urinary tract infection): Qualifiers: Hematuria presence: without hematuria Urinary tract infection type: acute cystitis Qualified Code(s): N30.00 - Acute cystitis without hematuria Code(s): N39.0 - Urinary tract infection, site not specified Status: Acute (5) Hydronephrosis: Qualifiers: Hydronephrosis type: with renal calculous obstruction Qualified Code(s): N13.2 - Hydronephrosis with renal and ureteral calculous obstruction Code(s): N13.30 - Unspecified hydronephrosis Status: Acute DS: Summary Hospital Course Hospital Course: 74 y/o M presents here with right flank pain with PMH of coronary artery disease, hyperlipidemia, and priapism, seasonal allergies, osteoarthritis, 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 The patient presented here from home for further evaluation of right lower back pain and right flank pain. He reports onset 1 hours prior to arrival to the emergency department around 7:30 this morning. Pain woke the patient from his sleep around 6:15 am. He described as sharp/stabbing, radiation down his right leg, constant, and no aggravating or alleviating factors. Trialed heat at home without effect. Accompanied by hematuria 4 days prior to pain today. Flank pain is not accompanied by nausea, vomiting, precipitating injury, or dysuria. Patient denies previous history of kidney stones. Urology was consulted in the emergency department and patient went for a retrograde pyelogram with stent placement. However postprocedure patient developed fever of 103.3? F and tachycardia with max heart rate of 128. Admission for possible urosepsis. Cough noted during exam, however patient not reporting shortness of breath. Initial VS at presentation: 97.2? F, HR 75, RR 16, 146/81, and 100% on RA. ED workup showed: WBC 12.3, hemoglobin 12.7, creatinine 0.7 and number GFR, UA consistent with UTI. CT of the abdomen/pelvis showed a 7 mm stone in a infundibulum in right kidney lower pole with mild hydronephrosis of the associated calyces and 2 mm nonobstructing right kidney stone. ----- On the day of admission 05/25/2024 the patient underwent a cystoscopy, right retrograde pyelography, right ureteral stent placement by Dr. Bettencourt. He is advised by Urology to follow-up in the outpatient setting for definitive ESWL. And 05/26 his fever curve has come down last temperature 99.9?. His pain is greatly improved. Ceftriaxone 1 g Q 24 hours IV and azithromycin (to cover pneumonia) was started on admission. His cough has improved after loratadine was started. He reports seasonal allergies and takes Zyrtec at home. Azithromycin can be discontinued after 3 days. Currently his febrile illness is improving however his white count is now up at 18.5 from 12.3 on admission. His procalcitonin was very high on admission at 21. We will recheck that again daily. Considering the above, it would be prudent to continue to treat him with IV antibiotics and follow-up blood and urine cultures which are still pending. Constipation, start MiraLax daily which he takes at home. For pain control continue acetaminophen, [place], morphine p.r.n. and graduated fashion. Discontinue fentanyl. Discontinue fluids On 05/26/2024 the patient is afebrile. His leukocytosis is mildly improved. He is doing better other we will continue to monitor him for today considering his white count is still high and his pain is not quite yet controlled. Also, importantly his urine cultures growing Gram-negative bacilli but we do not have sensitivities so we will await those. For now continue current antibiotics. Continue pain control. Discussed the interactions of heparin and meloxicam and the patient reports he can wait to restart the meloxicam. Since tomorrow may be a discharge day will check a CBC with differential and procalcitonin to help delineate disposition decisions. Procalcitonin has come down very nicely in a graduated fashion. For his constipation, he has not had a bowel movement since the day prior to admission and takes MiraLax daily at home. Continue that and start Senokot 1 tab p.o. q.h.s. 1 tab now and again tonight. On 05/27/2024 patient stable for discharge to home with his spouse. His pain is greatly improved. Urine is clear. Urine culture from admission on 05/25/2024 resulted E coli resistant to fluoroquinolones and Bactrim. Patient has been receiving ceftriaxone for 3 days. He will be discharged on Keflex 500 mg p.o. b.i.d. for another 7 days. On 05/25/2024 the day of admission the patient underwent cystoscopy, right retrograde pyelography, right ureteral stent placement by Dr. Bettencourt. He is discharged from a urologic and medical standpoint. He will be holding aspirin at the request of Urology. Repeat CBC in 3 days to ensure appropriate resolution of leukocytosis. On admission 18.5 now down to 13.4. Procalcitonin high on admission at 29.1 now 8.2. Adverse effects of medication discussed. Patient educated on the warning signs of worsening infection advised to return to the ER if he experiences those. Also advised to follow up with PCP. Patient agreed to the above plan. He was full code during the admission. ----- Note to the patient: The 21st Century Cures Act makes medical notes like these available to patients in the interest of transparency. Please be advised this is a medical document. It is intended for beef-qi-ocdo communication. It is written in medical language and may contain unfamiliar abbreviations or verbiage. Components may appear blunt or direct. Medical documents are intended to carry relevant information, facts as evident, and the clinical opinion of the practitioner at the time of the encounter. This note was generated by a speech recognition system and may contain inherent errors or omissions not intended by the user. Grammatical errors, random word insertions, deletions, pronoun errors and incomplete sentences are occasional consequences of this technology due to software limitations. Not all errors are caught or corrected. If there are questions or concerns about the content of this note or information contained within the body of this dictation they should be addressed directly with author for clarification. The file time of this note does not necessarily represent the time the patient was seen. Time Spent with Patient Time attestation: Total time spent providing and/or coordinating discharge services: Exam Const: General: comfortable and no acute distress Other: A&O x3 Eyes: Pupils: Equal, round and reactive pupils present Neck: Neck: supple Resp: Effort & Inspection: normal respiratory effort Auscultation: clear to auscultation bilaterally Cardio: Rate: regular rate Rhythm: regular rhythm GI: GI Palp: Yes Soft to palpation and No Tenderness to palpation present (GI) Extrem: General: no edema DS: Data Data Completed and Pending Labs on day of discharge: Labs from last 24 hours 05/28/24 05/28/24 10:43 06:40 WBC 13.4 H RBC 3.91 L Hgb 10.7 L Hct 32.5 L MCV 83.1 MCH 27.4 MCHC 32.9 RDW 14.9 H Plt Count 245 MPV 10.5 H Immature Gran % (Auto) 0.7 H Neut % (Auto) 75.1 H Lymph % (Auto) 14.8 L [place] % (Auto) 8.3 Eos % (Auto) 0.7 Baso % (Auto) 0.4 Lymph # (Auto) 1.98 [place] # (Auto) 1.1 H Eos # (Auto) 0.1 Baso # (Auto) 0.1 Abs Immat Gran (auto) 0.09 H Absolute Neuts (auto) 10.0 H Absolute Nucleated RBC 0.000 Nucleated RBC % 0.0 PT 14.2 INR 1.1 APTT 32.2 Sodium 135 L Potassium 3.9 Chloride 100 Carbon Dioxide 24 Anion Gap 11 BUN 10 Creatinine 0.80 Estim Creat Clear Calc 79 Estimated GFR > 60 Glucose 107 Calcium 8.7 Magnesium 2.1 Procalcitonin 8.2 Preliminary micro results at discharge 05/25/24 16:57 Blood Culture - Preliminary Blood 05/25/24 16:57 Blood Culture - Preliminary Blood Discharge Plan Discharge Attending physician on discharge: Bora Bettencourt Consulting providers: Bora Bettencourt Discharging Clinician: Bora Bettencourt Patient Disposition: Home, Self-Care Activity: other - see discharge instructions Diet: other - see discharge instructions Discharge Instructions: 1) Activity: no driving or important decisions x24 hours. 2) Diet: resume your normal, pre-admission diet. 3) Follow-up: my office will contact to schedule right ESWL. Stand Alone Forms: General Discharge Instructions Follow-up/Referrals: Carrillo Camarena MD [Primary Care Provider] - Discharge Medications: New cephalexin 500 mg capsule 500 mg PO Q12H 7 Days Qty: 14 0RF hydrocodone-acetaminophen 5-325 mg Tablet 1 tablet PO Q6H PRN (Reason: Pain Rated 4-6) Qty: 10 0RF Continued tadalafil [Cialis] 5 mg tablet 5 mg PO DAILY sildenafil 100 mg tablet 100 mg PO DAILY PRN (Reason: Erectile Dysfunction) Rx Instructions: administer 30 minutes to 4 hours before activity meloxicam 7.5 mg tablet 7.5 mg PO DAILY Rx Instructions: TAKE ONE TABLET (7.5 MG) BY MOUTH EVERY DAY oxymetazoline 0.05 % [place],Non-Aerosol 2 spray INTRANASAL Q12H PRN (Reason: Nasal Congestion) rosuvastatin 40 mg tablet 40 mg PO DAILY Qty: 90 1RF Held aspirin [Adult Aspirin Regimen] 81 mg tablet,delayed release (DR/EC) 81 mg PO DAILY Other Ambulatory Orders: Complete Blood Count with Diff (Routine) Timeframe: 3 Days Location: Determined by Patient Ordered By: Heather Metzger Date of admission: 05/25/24 18:00 Primary Care Provider: Carrillo Camarena Admitting Provider: Heather Metzger Attending physician on admission: Heather Metzger Condition: Stable
== END 2024-05-28 15:15 | disposition home or self-care (01) | DRG 660 ==
LOC: ANHED 09:42 → ANHSURGERY 10:05 → ANH3MEDSUR 16:03
PROVIDERS: Physician Assistant; Student in an Organized Health Care Education/Training Program; Urology; Admitting Provider General Practice; Emergency Provider Emergency Medicine; PCP Family Medicine; Visit Provider General Practice
PROC: 0T768DZ Dilation of Right Ureter with Intraluminal Device, Via Natural or Artificial Opening Endoscopic (ICD-10-PCS; CPT 52352; principal; 2024-05-25 13:00)
DX: N13.6 Pyonephrosis (principal); N48.30 Priapism, unspecified; B96.20 Unspecified Escherichia coli [E. coli] as the cause of diseases classified elsewhere; I25.10 Atherosclerotic heart disease of native coronary artery without angina pectoris; E78.2 Mixed hyperlipidemia; M19.90 Unspecified osteoarthritis, unspecified site; Z95.5 Presence of coronary angioplasty implant and graft; Z79.82 Long term (current) use of aspirin
CPT/HCPCS: 36415; 71046; 74176; 74420; 80048; 80053; 81001; 83605; 83735; 84145; 85025; 85027; 85610; 85730; 87040; 87077; 87086; 87088; 87186; 93005; 96361; 96365; 96375; 96376; 99285; A9270; C1758; C1769; C2617; G0378; J0456; J0696; J1171; J1644; J1885; J2003; J2270; J2405; J2704; J7030; J7040; J7120; Q9966

== ENCOUNTER 2024-05-31 01:55 | Day surgery (SDC) | payer OTHER, SELFPAY ==
[2024-05-28 11:36] VITALS: BMI 25.1
--- NOTE | 2024-05-28 11:52 | PC.NURSE ---
Report to the Outpatient Waiting Room, entrance under the green pavilion located off [facility], at time __10:00AM on date ___05/31/24____. Planned Procedure Time: ___12:00PM . Time changes happen often and if your time is changed the preop area will call you the afternoon before. - You and your visitor will be asked to self-screen and do not enter if you have any COVID symptoms. - A mask is optional within the hospital at this time. Patients may have clear liquids (water, carbonated beverages, clear teas, apple juice) until 3 hours prior to surgery with a maximum of 20 ounces. - No food from midnight until time of surgery. Take the following medications with a SIP of water the morning of surgery: NONE DO NOT STOP ANY OF YOUR OTHER PRESCRIPTION MEDICATIONS PRIOR TO SURGERY ?EXCEPT THE FOLLOWING Medications to discontinue per physician ___HOLD ASPIRIN PER DR [place] Date to take last dose Please no make-up, nail maltese, hairspray, perfume, deodorant, or body powder the day of surgery. No jewelry (including any body piercings) or valuables the day of surgery, leave them at home. Please take a shower or bath the night before, or the morning of, surgery with an antibacterial soap. Wear comfortable, loose fitting clothing. - Jewelry must be removed prior to entering the operating room. Rings and piercings that are not removed may be cut off. - The hospital will not accept responsibility for valuables. - Please leave all valuables, including medications, at home the day of surgery. If you are going home after surgery, a licensed long haul truck driver must drive you home. - NO public transportation without another adult if you receive anesthesia. - We recommend that an adult stay with you for 24 hours following discharge. - We also recommend that you do not drive, make important decision, drink alcoholic beverages, or take any drugs that were not prescribed by your health care provider for at least 24 hours after your discharge time. Follow any additional instructions given to you from your surgeon. If you or anyone in your household have experienced Covid symptoms in the past week, please notify your surgeon or the nurse liaison at the phone number below for possible testing. Telephone instructions given to ____PATIENT and asked if any additional questions and then verbalized understanding. Patient advised to call surgeon office or pre surgery nurse liaison [phone] if any additional questions.
--- NOTE | ~2024-05-31 | XR_ITS ---
EXAMINATION: XR abdomen/kub 1V DATE: 05/31/2024 10:26 INDICATION: Kidney stone. TECHNIQUE: A supine view of the abdomen on 2 radiographs was obtained. COMPARISON: CT abdomen and pelvis 05/25/2024 FINDINGS: There are no dilated loops of bowel. There is a 9 mm stone in right kidney. There is a righ t intraureteral stent in expected position. There are phleboliths in the pelvis. IMPRESSION: 1. 9 mm stone in right kidney with right internal ureteral stent in expected position. Reviewed, dictated and finalized at location A. IMPRESSION: 1. 9 mm stone in right kidney with right internal ureteral stent in expected po sition.
--- NOTE | 2024-05-31 06:05 | WPDHPUPDATE1 ---
History and Physical Update Update Date/Time: 05/31/24 06:05 History and Physical has been reviewed, including an updated exam of the patient. There are NO changes in the patient's condition. Risks, benefits, and alternatives have been discussed and questions answered. Patient agrees to proceed with procedure.
[2024-05-31 10:30] VITALS: BP 117/70; PULSE 106; RESP 18; TEMP 36.6; O2SAT 100
[2024-05-31] MEDS: LACTATED RINGERS 1,000 ML 30 ML IV CONT (10:30)
--- NOTE | 2024-05-31 10:53 | WPDANESEPPF ---
Anes - Initial Pre Proc Eval Procedure: Operation Date: 05/31/24 12:00 Proposed Procedures p Right Extracorporeal Shock Wave Lithotripsy - Bora Bettencourt MD Date/Time: 05/31/24 10:53 Surgeon: Bora Bettencourt MD Pre Op Diagnosis: Rt Renal Stone Patient Data Age: 74 Gender: M Height: 1.83 m Weight: 84 kg Allergies Allergy/AdvReac Type Severity Reaction Status Date / Time rabies vaccine, human Allergy Intermediate RASH, Verified 05/28/24 11:33 diploid cell SWELLING Home Medications Medication Instructions Recorded Confirmed Type aspirin 81 mg tablet,delayed 81 mg PO DAILY 03/30/22 05/28/24 History release (Adult Aspirin Regimen) tadalafil 5 mg tablet (Cialis) 5 mg PO DAILY 09/26/23 05/28/24 History sildenafil 100 mg tablet 100 mg PO DAILY PRN Erectile 11/04/23 05/28/24 History Dysfunction rosuvastatin 40 mg tablet 40 mg PO DAILY #90 tabs 01/15/24 05/28/24 Rx meloxicam 7.5 mg tablet 7.5 mg PO DAILY 05/25/24 05/28/24 History cephalexin 500 mg capsule 500 mg PO Q12H 7 days #14 caps 05/28/24 Rx hydrocodone 5 mg-acetaminophen 325 1 tablet PO Q6H PRN Pain Rated 4-6 05/28/24 Rx mg tablet #10 tabs oxymetazoline 0.05 % nasal spray 2 spray intranasal Q12H PRN Nasal 05/28/24 05/28/24 History Congestion Patient hx anesthesia problems: none Family hx anesthesia problems: none Results Review: All pre-operative results and documents have been reviewed as part of the pre-operative evaluation. [facility] Past Medical History Medical History Avulsion of tendon of finger Bilateral knee pain Body mass index (BMI) of 26.0 to 26.9 in adult Coronary artery disease Mixed hyperlipidemia Priapism Right knee injury Screen for colon cancer Skin cancer screening Surgical History Surgical History Stented coronary artery Family History Family History Father Family history of heart disease in male family member before age 55 Mother Family history of heart disease in male family member before age 55 Sibling Heart disease Tobacco abuse Sibling Tobacco abuse Social History Social History Smoking status: Never smoker Second hand tobacco smoke exposure: Yes Alcohol intake: current Drinks per week: 1 Substance use: never Substance use type: does not use Do You Feel Safe in your Home?: Yes Lack of Transportation: No Lack of Food: Never True Current Housing: I Have Housing Concerned About Future Housing: No Difficulty Paying Gas/Electric Bills: No Difficulty Paying for Meds: No Currently Unemployed: No Education: Master's Degree or Higher Difficulty w/ Childcare or Family Care: No Living arrangements: with family Additional living arrangements comments: Occupation/Education: retired 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 Hyperlipidemia, CAD s/p PTCA to LAD approx . Pt had stress test approx 2021 without ischemia. Pt active w gardening, boxing several days/week, no cp or sob. Informed Consent: The patient's anesthetic plan and its attendant risks and benefits were discussed with jake
[2024-05-31] MEDS: ceFAZolin 2 GM/D5W 50 ML 2 GM/50 ML BAG IVPB (11:50)
--- NOTE | 2024-05-31 12:28 | W.PM.PROC2 ---
Procedure Note - Detailed Date of Procedure 05/31/24 Pre-op Diagnosis Rt Renal Stone Post-op Diagnosis Same Procedure Performed Right ESWL Surgeon Bora Bettencourt MD Anesthesia General Description of Procedure The patient was brought to the operative suite where he was placed in the supine position on the [place] lithotripsy table. The focal point of the lithotripter was placed at a 9mm right renal pelvic calculus. A total of 2500 shocks were delivered at a power setting of 4. There appeared to be good fragmentation of the stone. The patient tolerated the procedure well and was taken to the recovery room in good condition. Complications No immediate complications Condition Stable Disposition PACU
[2024-05-31 12:37] VITALS: BP 124/75; PULSE 100; RESP 20; TEMP 36.3; O2SAT 98
[2024-05-31 12:50] VITALS: BP 127/77; PULSE 72; RESP 16; O2SAT 96
[2024-05-31 13:05] VITALS: BP 131/70; PULSE 72; RESP 18; O2SAT 94
[2024-05-31 13:10] VITALS: BP 138/72; PULSE 74; RESP 18
[2024-05-31] MEDS: oxyCODONE HCL (*CRX) 5 MG TAB IR PO (13:29)
[2024-05-31 13:35] VITALS: BP 141/74; PULSE 73; RESP 16
[2024-05-31] MEDS: ONDANSETRON INJ 4 MG/2 ML VIAL IV PUSH (13:52)
== END 2024-05-31 14:06 | disposition home or self-care (01) ==
PROVIDERS: PCP Family Medicine; Visit Provider Urology
PROC: (CPT 50590; principal; 2024-05-31 12:00)
DX: N20.0 Calculus of kidney (principal); N13.30 Unspecified hydronephrosis; I25.10 Atherosclerotic heart disease of native coronary artery without angina pectoris; E78.2 Mixed hyperlipidemia; Z79.82 Long term (current) use of aspirin; Z79.891 Long term (current) use of opiate analgesic; Z98.890 Other specified postprocedural states; Z95.5 Presence of coronary angioplasty implant and graft; Z82.49 Family history of ischemic heart disease and other diseases of the circulatory system
CPT/HCPCS: 50590; 74018; A9270; J0690; J1100; J2405; J2704; J7120

== ENCOUNTER 2024-06-15 08:37 | Outpatient (CLI) | payer OTHER, SELFPAY ==
--- NOTE | ~2024-06-15 | XR_ITS ---
Supine and upright views of the abdomen Clinical history: Renal stone COMPARISON: 05/31/2024 Findings: Bowel gas pattern is nonspecific. No evidence for obstruction or free air. Right ureteral s tent in place. Proximal right ureteral stone no longer seen. Osseous structures are intact. Impression: Right ureteral stent in place. No renal stone evident. Reviewed, dictated and finalized at location . Impression: Right ureteral stent in place. No renal stone evident.
== END 2024-06-15 08:38 | disposition home or self-care (01) ==
PROVIDERS: PCP Family Medicine; Visit Provider Urology
DX: N20.1 Calculus of ureter (principal); Z96.0 Presence of urogenital implants
CPT/HCPCS: 74018

== ENCOUNTER 2024-06-26 07:58 | Outpatient (CLI) | payer OTHER, SELFPAY ==
--- NOTE | 2024-06-26 08:15 | ECHO_ITS ---
Patient Info Name: Karthik Sen Age: 74 years : 1950 Gender: Male Ht: 72 in Wt: 184 lbs BSA: 2.07 m2 HR: 75 bpm BP: 135 / 76 mmHg Technical Quality: Fair Exam Date: 06/26/2024 8:51 AM Exam Location: Echo Lab Patient Status: Outpatient Admit Date: 06/26/2024 Staff Ordering Physician: Judi Lewis PAC Counterintelligence Analyst: Prema Whaley RDCS Attending Provider: Judi Lewis Referring Physician: Debbie MCKEON; Exam Type: CA echo doppler color flow Study Info Indications R06.02 - Shortness of breath Complete two-dimensional, color flow and Doppler transthoracic echocardiogram is performed. Strain analysis performed. Summary 1. Complete two-dimensional, color flow and Doppler transthoracic echocardiogram is performed. 2. Left ventricular chamber dimension is normal. 3. Left ventricular systolic function is normal, estimated at 60-65%. 4. The left ventricular diastolic function is grade I diastolic dysfunction. 5. E/e' 9 is minimally elevated. 6. Global longitudinal strain is abnormal at -15.9%. 7. There is mild aortic valve sclerosis. 8. The mitral valve has moderately calcified annulus. 9. There is mild mitral valve regurgitation. 10. There is trace tricuspid valve regurgitation. 11. No pulmonary hypertension, estimated pulmonary arterial systolic pressure is 28 mmHg. Left Ventricle E/e' 9 is minimally elevated. Global longitudinal strain is abnormal at -15.9%. Left ventricular chamber dimension is normal. Left ventricular systolic function is normal, estimated at 60-65%. The left ventricular diastolic function is grade I diastolic dysfunction. Right Ventricle Right ventricular systolic function is normal and with normal TAPSE 2.1 cm. Right ventricular chamber dimension is normal. Left Atria Left atrial chamber dimension is normal. Right Atria Right atrial chamber dimension is normal. Aortic Valve The aortic valve is trileaflet. There is mild aortic valve sclerosis. There is no aortic valve stenosis. There is no aortic valve regurgitation. Pulmonic Valve There is no pulmonic regurgitation. Mitral Valve The mitral valve has moderately calcified annulus. There is no mitral valve stenosis. There is mild mitral valve regurgitation. Tricuspid Valve There is trace tricuspid valve regurgitation. No pulmonary hypertension, estimated pulmonary arterial systolic pressure is 28 mmHg. Pericardium/Pleural There is no pericardial effusion. Inferior Vena Cava Normal inferior vena cava with >50% collapse upon inspiration consistent with normal right atrial pressure, 5 mmHg. Aorta The aortic root size at the sinus of Valsalva is normal. Left Ventricular Outflow Tract Name Value Normal LVOT 2D LVOT Diameter 2.0 cm LVOT Doppler LVOT Peak Gradient 5 mmHg LVOT Mean Gradient 2 mmHg LVOT VTI 23 cm LVOT VTI/AV VTI Ratio 0.9 LVOT Stroke Volume 72 ml LVOT CO 5.3 l/min LVOT CI 2.5 l/min/m2 Pulmonic Valve
--- NOTE | 2024-06-29 17:10 | WPDHOLTEREM ---
Holter/Event Monitor Holter/Event Monitor Date of procedure: 06/26/24 Holter/Event Procedure: 48 Hr Holter Monitor Conclusion: 1. 48 hour holter monitor on 06/26/24. 2. Predominant rhythm is sinus rhythm. HR range 57-148 bpm; average HR 88 bpm. HR at 148 bpm was at 10:23. 3. There are 2,065 premature supraventricular complexes, 4 supraventricular couplets, and 6 supraventricular trigeminy. There is 1 episode of atrial tachycardia at 115 bpm lasting 4 beats. 4. There are 15,143 premature ventricular complexes, 149 ventricular couplets, 29 ventricular triplets, 91 ventricular bigeminy and 9,221 ventricular trigeminy. No ventricular tachycardia. 5. No sinoatrial or atrioventricular blocks. No significant pauses greater than 2 seconds. 6. No symptoms available for correlation.
== END 2024-06-26 07:59 | disposition home or self-care (01) ==
PROVIDERS: PCP Family Medicine; Visit Provider Physician Assistant Medical
DX: I50.30 Unspecified diastolic (congestive) heart failure (principal); I08.1 Rheumatic disorders of both mitral and tricuspid valves; I49.9 Cardiac arrhythmia, unspecified; R06.02 Shortness of breath; I25.10 Atherosclerotic heart disease of native coronary artery without angina pectoris
CPT/HCPCS: 93225; 93226; 93306

== ENCOUNTER 2024-07-24 11:01 | Outpatient (CLI) | payer OTHER, SELFPAY ==
--- NOTE | ~2024-07-24 | XR_ITS ---
XR abdomen/kub 1V Ordering provider: Bora Bettencourt History: . KIDNEY STONE . Comparison: None. FINDINGS: BOWEL: Nonobstructive bowel gas pattern. ORGANOMEGALY: None. SIGNIFICANT PATHOLOGIC CALCIFICATIONS: Highly suggestive stone in the right kidney lower pole. Calcif ications seen in the right side of the pelvis which is most likely outside the ureter. OTHER: No free air is seen under the diaphragm. Levoscoliosis. Degenerative changes of the spine. IMPRESSION: NO ACUTE ABDOMINAL FINDINGS. Highly suggestive stone in the right kidney lower pole. Calcifications in the pelvis on the right side which may be outside the ureter. Noncontrast CT abdome n is better for evaluation. Reviewed, dictated and finalized at location A. IMPRESSION: NO ACUTE ABDOMINAL FINDINGS. Highly suggestive stone in the right kidney lower pole. Calcifications in the pelvis on the right side which may be outside the ureter. Noncontrast CT abdomen is better for evaluation.
== END 2024-07-24 11:02 | disposition home or self-care (01) ==
LOC: ANHIMG 11:05
PROVIDERS: PCP Family Medicine; Visit Provider Urology
DX: N20.0 Calculus of kidney (principal)
CPT/HCPCS: 74018

== ENCOUNTER 2024-08-01 09:03 | Outpatient (CLI) | payer OTHER, SELFPAY ==
[2024-08-01 09:37] LABS: Prothrombin Time 13.8 Seconds (11.1-14.7)
[2024-08-01 09:38] LABS: Partial Thromboplastin Time 26.7 Seconds (22.3-36.8)
== END 2024-08-01 09:04 | disposition home or self-care (01) ==
PROVIDERS: PCP Family Medicine; Visit Provider Urology
DX: N20.0 Calculus of kidney (principal); Z01.818 Encounter for other preprocedural examination
CPT/HCPCS: 36415; 85610; 85730; 87086

== ENCOUNTER 2024-08-10 03:02 | Day surgery (SDC) | payer OTHER, SELFPAY ==
[2024-07-31 15:16] VITALS: BMI 25.0
--- NOTE | 2024-07-31 15:30 | PC.NURSE ---
Report to the Outpatient Waiting Room, entrance under the green pavilion located off [facility], at time _0900am____on date _08/10/24 . Planned Procedure Time: __1100am .? Time changes happen often and if your time is changed the preop area will call you the afternoon before. - You and your visitor will be asked to self-screen and do not enter if you have any COVID symptoms. Please call surgeon if you need to reschedule. - A mask is optional within the hospital at this time. Patients may have clear liquids (water, carbonated beverages, clear teas, apple juice) until 3 hours prior to surgery with a maximum of 20 ounces. - No food from midnight until time of surgery and no smoking Take only the following medications with a SIP of water on the morning of surgery: ___Tylenol if needed for pain . DO NOT STOP ANY OF YOUR OTHER PRESCRIPTION MEDICATIONS PRIOR TO SURGERY EXCEPT THE FOLLOWING Medications to discontinue per physician Hold Aspirin and Meloxicam for 7 days prior to surgery per Dr Bettencourt. Date to take last dose__08/01/24 Please no make-up, nail palestinian, hairspray, perfume, deodorant, or body powder the day of surgery.? No jewelry (including any body piercings) or valuables the day of surgery, leave them at home.? Please take a shower or bath the night before, or the morning of, surgery with an antibacterial soap.? Wear comfortable, loose fitting clothing.? Children are encouraged to wear pajamas. - Jewelry must be removed prior to entering the operating room.? Rings and piercings that are not removed may be cut off. - The hospital will not accept responsibility for valuables.? - Please leave all valuables, including medications, at home the day of surgery. If you are going home after surgery, a licensed drivers license examiner must drive you home.? - NO public transportation without another adult if you receive anesthesia. - We recommend that an adult stay with you for 24 hours following discharge. - We also recommend that you do not drive, make important decision, drink alcoholic beverages, or take any drugs that were not prescribed by your health care provider for at least 24 hours after your discharge time. Follow any additional instructions given to you from your surgeon. Telephone instructions given to _patient and asked if any additional questions and then verbalized understanding. Patient advised to call surgeon office or pre surgery nurse liaison [phone] if any additional questions.
[2024-08-10] VITALS (7 sets, daily range): BP systolic 118–136; BP diastolic 72–90; PULSE 57–78; RESP 12–18; TEMP 36.1–36.3; O2SAT 100; BMI 25.1
--- NOTE | ~2024-08-10 | XR_ITS ---
EXAMINATION: XR abdomen/kub 1V DATE: 08/10/2024 08:50 INDICATION: Nephrolithiasis. Shockwave lithotripsy TECHNIQUE: A supine view of the abdomen on 2 radiographs was obtained. COMPARISON: 07/24/2024 FINDINGS: Moderate amount of gas and stool scattered throughout the colon which projects of the kidneys limitin g evaluation for small renal stones. There appears be a cluster of 4 5 or 6 stone fragments measuring approximately 2-3 mm each project over the lower pole the right kidney. Possible additional 3 mm sto ne fragment projecting over the mid right kidney. No dilated gas-filled bowel to suggest obstruction. Left lower lobe calcified granuloma and inferior left calcite mediastinal lymph nodes. Mild lumbar l evorotoscoliosis with mild to moderate spondylosis and severe right-sided facet osteoarthritis. Moder ate bilateral sacroiliac osteoarthritis. IMPRESSION: 1. A few 2-3 mm stone fragments project over the mid to lower right kidney although assessment is tara ewhat limited by superimposed stool in the colon. Reviewed, dictated and finalized at location A. IMPRESSION: 1. A few 2-3 mm stone fragments project over the mid to lower right kidney alth ough assessment is somewhat limited by superimposed stool in the colon.
--- NOTE | 2024-08-10 06:33 | WPDHPUPDATE1 ---
History and Physical Update Update Date/Time: 08/10/24 06:33 History and Physical has been reviewed, including an updated exam of the patient. There are NO changes in the patient's condition. Risks, benefits, and alternatives have been discussed and questions answered. Patient agrees to proceed with procedure.
[2024-08-10] MEDS: LACTATED RINGERS 1,000 ML 30 ML IV CONT (09:30)
--- NOTE | 2024-08-10 09:45 | WPDANESEPPF ---
Anes - Initial Pre Proc Eval Procedure: Operation Date: 08/10/24 11:00 Proposed Procedures p Right Extracorporeal Shock Wave Lithotripsy - Bora Bettencourt MD Date/Time: 08/10/24 09:45 Surgeon: Bora Bettencourt MD Pre Op Diagnosis: right kidney stone Patient Data Age: 74 Gender: M Height: 1.83 m Weight: 83.48 kg Allergies Allergy/AdvReac Type Severity Reaction Status Date / Time bee venom protein (honey bee) Allergy Intermediate Swelling Verified 07/31/24 15:12 rabies vaccine, human Allergy Intermediate RASH, Verified 07/31/24 15:12 diploid cell SWELLING Home Medications Medication Instructions Recorded Confirmed Type aspirin 81 mg tablet,delayed 81 mg PO DAILY 03/30/22 07/31/24 History release (Adult Aspirin Regimen) tadalafil 5 mg tablet (Cialis) 5 mg PO DAILY 09/26/23 07/31/24 History sildenafil 100 mg tablet 100 mg PO DAILY PRN Erectile 11/04/23 07/31/24 History Dysfunction rosuvastatin 40 mg tablet 40 mg PO DAILY #90 tabs 01/15/24 07/31/24 Rx meloxicam 7.5 mg tablet 7.5 mg PO DAILY 05/25/24 07/31/24 History hydrocodone 5 mg-acetaminophen 325 1 tablet PO Q6H PRN Pain Rated 4-6 05/28/24 07/31/24 Rx mg tablet #10 tabs oxymetazoline 0.05 % nasal spray 2 spray intranasal Q12H PRN Nasal 05/28/24 07/31/24 History Congestion ondansetron 4 mg disintegrating 4 mg PO Q8H PRN nausea and 05/31/24 07/31/24 Rx tablet vomiting #14 tabs multivit,Ca,min-iron 8 mg-folic 1 tablet PO DAILY 07/31/24 07/31/24 History acid 200 mcg-lycopene 600 mcg tablet (Centrum Men) Patient hx anesthesia problems: none Family hx anesthesia problems: none Results Review: All pre-operative results and documents have been reviewed as part of the pre-operative evaluation. COUNT INCLUDES THE [facility] Past Medical History Medical History Avulsion of tendon of finger Bilateral knee pain Body mass index (BMI) of 26.0 to 26.9 in adult Coronary artery disease Mixed hyperlipidemia Priapism Right knee injury Screen for colon cancer Skin cancer screening Surgical History Surgical History Stented coronary artery Family History Family History Father Family history of heart disease in male family member before age 55 Mother Family history of heart disease in male family member before age 55 Sibling Heart disease Tobacco abuse Sibling Tobacco abuse Social History Social History Smoking status: Never smoker Second hand tobacco smoke exposure: Yes Alcohol intake: current Drinks per week: 1 Substance use: never Substance use type: does not use Do You Feel Safe in your Home?: Yes Lack of Transportation: No Lack of Food: Never True Current Housing: I Have Housing Concerned About Future Housing: No Difficulty Paying Gas/Electric Bills: No Difficulty Paying for Meds: No Currently Unemployed: No Education: Master's Degree or Higher Difficulty w/ Childcare or Family Care: No Living arrangements: with family Additional living arrangements comments: Occupation/Education: retired 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 Informed Consent: The patient's anesthetic plan and its attendant risks and benefits were discussed with the patient/family/POA. Questions were solicited and answers provided to the satisfaction of the patient/family/POA.
[2024-08-10] MEDS: ceFAZolin 2 GM/D5W 50 ML 2 GM/50 ML BAG IVPB (10:33)
--- NOTE | 2024-08-10 10:46 | W.PM.PROC2 ---
Procedure Note - Detailed Date of Procedure 08/10/24 Pre-op Diagnosis Right kidney stone Post-op Diagnosis Same Procedure Performed Right ESWL Surgeon Bora Bettencourt MD Anesthesia General Description of Procedure The patient was brought to the operative suite where he was placed in the supine position on the Dornier lithotripsy table. The focal point of the lithotripter was placed at a 5mm right lower calyceal calculus. A total of 2500 shocks were delivered at a power setting of 4. There appeared to be good fragmentation of the stone. The patient tolerated the procedure well and was taken to the recovery room in good condition. Drains No Packing No Pathology None sent Complications No immediate complications Condition Stable Disposition PACU
== END 2024-08-10 12:42 | disposition home or self-care (01) ==
PROVIDERS: PCP Family Medicine; Visit Provider Urology
PROC: (CPT 50590; principal; 2024-08-10 11:00)
DX: N20.0 Calculus of kidney (principal); E78.2 Mixed hyperlipidemia; I25.10 Atherosclerotic heart disease of native coronary artery without angina pectoris; N48.6 Induration penis plastica; N48.30 Priapism, unspecified; N52.01 Erectile dysfunction due to arterial insufficiency; Z79.82 Long term (current) use of aspirin; Z79.891 Long term (current) use of opiate analgesic; Z98.890 Other specified postprocedural states; Z95.5 Presence of coronary angioplasty implant and graft; Z86.79 Personal history of other diseases of the circulatory system; Z82.49 Family history of ischemic heart disease and other diseases of the circulatory system
CPT/HCPCS: 50590; 74018; J0690; J2003; J2371; J2405; J2704; J3010; J7120

== ENCOUNTER 2024-08-21 08:15 | Outpatient (CLI) | payer OTHER, SELFPAY ==
--- NOTE | ~2024-08-21 | XR_ITS ---
XR abdomen/kub 1V Ordering provider: Bora Bettencourt MD History: . KIDNEY STONE FU . Comparison: None. FINDINGS: BOWEL: Nonobstructive bowel gas pattern. ORGANOMEGALY: None. SIGNIFICANT PATHOLOGIC CALCIFICATIONS: None. OTHER: No free air is seen under the diaphragm. Levoscoliosis. Degenerative spine. IMPRESSION: NO ACUTE ABDOMINAL FINDINGS. Reviewed, dictated and finalized at location A. E OILER
== END 2024-08-21 08:16 | disposition home or self-care (01) ==
PROVIDERS: PCP Family Medicine; Visit Provider Urology
DX: N20.0 Calculus of kidney (principal)
CPT/HCPCS: 74018

== ENCOUNTER 2025-01-22 14:59 | Outpatient (CLI) | payer OTHER, SELFPAY ==
--- NOTE | ~2025-01-22 | XR_ITS ---
Left Knee Technique: AP, lateral, and sunrise views were obtained. Clinical History: Arthritis Findings: No fracture or dislocation is seen. There is advanced medial compartment degenerative gallardo e with medial compartment narrowing and osteophyte formation. There is moderate degenerative spurring of the lateral and patellofemoral compartments. Soft tissues are unremarkable. No joint effusion is seen. Impression: Tricompartment degenerative change, as above, worst in the medial compartment. Reviewed, dictated and finalized at location M. Impression: Tricompartment degenerative change, as above, worst in the medial compartment.
--- OUTSIDE RECORDS SUMMARY | 2025-01-22 16:11 | XMS_ITS | Clinical Summary ---
Author Organization [facility] [address] [facility] Address [address] [place] [id number] Care Team Providers Care Diazo Technician Name Role Phone Carrillo Camarena MD Primary Care Provider Allergies Active Allergy Reactions Criticality Noted Date Comments Rabies Vaccine, Human Diploid Cell Rash Medium 1 12/02/2013 Medications rosuvastatin (CRESTOR) 40 mg tablet Take 1 tablet (40 mg total) by mouth daily 10/19/2022 Active meloxicam (MOBIC) 7.5 mg tablet Take 1 tablet (7.5 mg total) by mouth daily 01/19/2024 Active sildenafiL (VIAGRA) 100 mg tablet Take 1 tablet (100 mg total) by mouth as needed 12/14/2023 Active aspirin 325 mg tablet Take 1 tablet (325 mg total) by mouth daily Active multivitamin tabletIndication s:Vitamin Deficiency Prevention Take 1 tablet by mouth Active Active Problems No known active problems Immunizations Immunization Administration Dates Next Due Pfizer SARS-CoV-2 Monovalent Vaccination (12+ Yrs) DRIVER-READY TO USE 01/13/2022 Surgical History Surgery Date Site/Laterality Comments CARDIAC STENT PLACEMENT Medical History Medical History Date Comments Hyperlipidemia Family History Medical History Relation Name Comments Heart attack Father Heart disease Father Heart disease Mother Relation Name Status Comments Father Mother Social History Tobacco Use Types Packs/Day Years Used Date Smoking Tobacco: Never Smokeless Tobacco: Never Tobacco Cessation:Counseling Given: Not Answered Sex and Gender Information Value Date Recorded Sex Assigned at Not on file Legal Sex Male 3:59 AM [facility] Gender Identity Not on file Sexual Orientation Not on file Obstetrics History Last Filed Vital Signs Vital Sign Reading Time Taken Comments Blood Pressure 148/88 08/28/2024 8:54 AM [facility] Pulse 80 08/28/2024 8:54 AM [facility] Temperature 38.1 C (100.6 F) 08/23/2024 5:03 PM [facility] Respiratory Rate 20 08/23/2024 5:03 PM [facility] Oxygen Saturation 99% 08/28/2024 8:54 AM [facility] Inhaled Oxygen Concentration - - Weight 84.8 kg (187 lb) 08/28/2024 8:54 AM [facility] Height 180.3 cm (5' 11 ) 08/28/2024 8:54 AM [facility] Body Mass Index 26.08 08/28/2024 8:54 AM [facility] Plan of Treatment Health Maintenance Due Date Last Done Comments Colon Cancer Screening-Colonoscopy 1950 Depression Screening 1950 Fall Risk Assessment 1950 Hepatitis C Screening 1950 Hepatitis B Screening 1969 Pneumococcal vaccine 65+ (1 of 1 - PCV) 2001 Well Visit 65+ 2016 Zoster Vaccine (2 of 2) 07/20/2021 05/25/2021 DTaP/Tdap/Td Vaccine (2 - Td or Tdap) 03/27/2023 03/27/2013 Covid-19 Vaccine (5 - 2023-2 5 season) 2024 01/13/2022, 07/09/2021, 11/29/2020, Additional history exists Influenza Vaccine (Season Ended) 2025 06/27/2021, 07/03/2020, 07/05/2019, Additional history exists Insurance [facility] MEDICARE RAILROAD [facility] Address: [address] [address] [place] [address] [facility] Care Teams Diazo Technician Relationship Specialty Start Date End Date Carrillo Camarena MD [address] [place] [address] PCP - General Family Medicine 01/26/24
--- OUTSIDE RECORDS SUMMARY | 2025-01-22 16:11 | XMS_ITS | Clinical Summary ---
Author Organization [facility] Address [address] [place] [address] Care Team Providers Care Teen Counselor Name Role Phone Carrillo Camarena MD Primary Care Provider [phone] Source Comments [facility],non-owned Affiliates and Associated Physician Practices is amultiple site organization consisting of ambulatory clinics and hospital sitesin [place], [place], [place] and [place]. This disclosure is being madepursuant to the Care Everywhere program and may not contain all information available regarding this patient. Last updated 18.[facility] Allergies Active Allergy Reactions Criticality Noted Date Comments Rabies Vaccine Human Diploid Cell Skin Reactions Medium 10/01/2014 Family History Medical History Relation Name Comments Cancer Brother Diabetes Brother Hypertension Brother Heart Disease Father Heart Disease Mother Hypertension Mother Amblyopia Neg Hx Blindness Neg Hx Brain Tumor Neg Hx CVA Neg Hx Cataract Neg Hx Glaucoma Neg Hx Macular Degeneration Neg Hx Retinal Detachment Neg Hx Strabismus Neg Hx Thyroid Disease Neg Hx Relation Name Status Comments Brother Father Mother Social History Tobacco Use Types Packs/Day Years Used Date Smoking Tobacco: Never Smokeless Tobacco: Never Alcohol Use Standard Drinks/Week Comments Yes 0 (1 standard drink = 0.6 oz pur e alcohol) Sex and Gender Information Value Date Recorded Sex Assigned at Not on file 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 Gender Identity Not on file Sexual Orientation Not on file Plan of Treatment Health Maintenance Due Date Last Done Comments COLOGUARD (AGES 45-75) - COL ON CA SCREENING 1950 COLON MONITORING 1950 COLONOSCOPY - COLON CA SCREENING 1950 CT COLONOGRAPHY - COLON CA SCREENING 1950 Colorectal Cancer Screening 1950 FIT - COLON CA SCREENING 1950 FLEX SIG - COLON CA SCREENING 1950 LIPID TESTING 1950 MEDICARE AWV 12 MONTHS 1950 HEPATITIS C SCREENING 05/19/1969 DTAP/TDAP/TD VACCINES (1 - Tdap) 1970 PNEUMOCOCCAL VACCINE 50+ (1 of 1 - PCV) 2001 ZOSTER VACCINE (1 of 2) 2001 COVID-19 VACCINE (1 - 2023-2 5 season) 2024 DEPRESSION SCREENING 10/10/2024 INFLUENZA VACCINE (Season Ended) 2025 Respiratory Syncytial Virus (RSV) Vaccine Pt: or over 60 yrs (1 - 1-dose 75+ series) 2026 HEPATITIS B VACCINE Aged Out No longe r eligible based on patient's age to complete this topic HIB VACCINE Aged Out No longer eligi ble based on patient's age to complete this topic HPV VACCINE Aged Out No longer eligi ble based on patient's age to complete this topic MENINGOCOCCAL (Group B) VACC INE SHARED DECISION-MAKING Aged Out No longer eligibl e based on patient's age to complete this topic MENINGOCOCCAL GROUPS A/C/Y/W VACCINE Aged Out No longer eligible b ased on patient's age to complete this topic Insurance [employer] Care Teams Teen Counselor Relationship Specialty Start Date End Date Carrillo Camarena MD [address] [place] [address] [facility] - General 10/01/14
--- OUTSIDE RECORDS SUMMARY | 2025-01-22 16:11 | XMS_ITS | Encounter Summary ---
Author Organization [facility] Address [address] [place] [address] Care Team Providers Care Locomotive Mechanic Apprentice Name Role Phone Carrillo Camarena MD Primary Care Provider [phone] Encounter Details Date Type Department Care Team (Late st Contact Info) Description 07/16/2024 Lab Requisition [facility] - DermPath Lab [address] [facility], [facility] [id number] Noman Randolph MD 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 Gender Identity Not on file Sexual Orientation Not on file documented as of this encounter Plan of Treatment Not on file documented as of this encounter Procedures Procedure Name Priority Date/Time Associated Diagnosis Comments DERMATOPATHOLOGY Routine 07/16/2024 12:0 0 AM CDT Dermatitis, unspecified documented in this encounter Results * DERMATOPATHOLOGY (07/16/2024 12:00 AM CDT) Case Report Dermatopathology Report Case: [id number] Authorizing Provider: Noman Randolph MD Collected: 07/16/2024 12:00 AM Ordering Location: [facility] - Received: 07/17/2024 01:45 PM DermPath Lab Pathologist: Louise Henderson MD Specimen: Skin, left upper back 3:42 PM T DERMATOPATHOLOGY LABORATORY Final Diagnosis Specimen A. SKIN, left upper back: SUBACUTE SPONGIOTIC DERMATITIS (L30.8) CHRONIC PERIFOLLICULITIS (L73.8) (see microscopic description and comment) 3:42 PM T DERMATOPATHOLOGY LABORATORY Clinical History Atopic dermatitis 3:42 PM CDT DERMATOPATHOLOGY LABORATORY Gross Description Specimen A: Received is one formalin filled container labeled with the patient's name and designated left upper back. The specimen consists of a punch biopsy measuring 3x3x3 mm. Jar 0. 3:42 PM T DERMATOPATHOLOGY LABORATORY Microscopic Description Specimen A. SKIN, left upper back: There is focal parakeratosis and spongiosis of the epidermis. In the dermis there is papillary dermal edema and a mainly superficial perivascular and perifollicular lymphohistiocytic infiltrate. Additional deeper sections were obtained and reviewed. Periodic acid-Crow (PAS) stain fails to highlight fungal elements in the available sections. COMMENT: These histological findings are somewhat subtle but are consistent with an eczematous dermatitis with superimposed folliculitis. Clinicopathologic correlation is recommended. 3:42 PM T DERMATOPATHOLOGY LABORATORY Disclaimer An external and internal positive and negative controls are appropriate for the histochemical, immunohistochemical and immunofluorescence stain(s) in this case (if any), except where stated explicitly. The performance characteristics of the stain(s) cited in this report were developed and its performance characteristic determined by the Dermatopathology Laboratory at [facility], directed by Dr. Adam Mckeon. These tests need not be, and therefore are not, approved by the [place] Food and Drug Administration. The tests are used for clinical purposes. Billing Codes Specimen Charges Stain Charges 64145 1 99091 1 3:42 PM CDT DERMATOPATHOLOGY LABORATORY Embedded Images 3:42 PM CDT DERMATOPATHOLOGY LABORATORY Pathology/Cytolog y TISSUE SPECIMEN FROM SKIN / Unknown 07/16/2024 07/17/2024 1:45 PM CDT Noman Randolph MD LAB - PATHOLOGY/CYTOLOGY ORDE RABLES Final Result DERMATOPATHOLOGY LABORATORY [facility] - Department of Dermatology [facility] Medicine [address] [place] [address], [address] [phone] documented in this encounter Visit Diagnoses Diagnosis Dermatitis, unspecified documented in this encounter Care Teams Locomotive Mechanic Apprentice Relationship Specialty Start Date End Date Carrillo Camarena MD [address] [place] [address] PCP - General 10/01/14 documented as of this encounter
--- OUTSIDE RECORDS SUMMARY | 2025-01-22 16:11 | XMS_ITS | Referral Summary ---
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 Gender Identity Not on file Sexual Orientation Not on file Last Filed Vital Signs Vital Sign Reading Time Taken Comments Blood Pressure 148/88 08/28/2024 8:54 AM CLOTHING WORKER Pulse 80 08/28/2024 8:54 AM CLOTHING WORKER Temperature 38.1 C (100.6 F) 08/23/2024 5:03 PM CLOTHING WORKER Respiratory Rate 20 08/23/2024 5:03 PM CLOTHING WORKER Oxygen Saturation 99% 08/28/2024 8:54 AM CLOTHING WORKER Inhaled Oxygen Concentration - - Weight 84.8 kg (187 lb) 08/28/2024 8:54 AM CLOTHING WORKER Height 180.3 cm (5' 11 ) 08/28/2024 8:54 AM CLOTHING WORKER Body Mass Index 26.08 08/28/2024 8:54 AM CLOTHING WORKER Plan of Treatment Not on file Insurance [facility] MEDICARE RAILROAD [facility] Care Teams Network Operations Manager Relationship Specialty Start Date End Date Carrillo Camarena MD [address] [place] [address] PCP - General Family Medicine 01/26/24
--- OUTSIDE RECORDS SUMMARY | 2025-01-22 16:11 | XMS_ITS ---
Author Name GLENDY RICHARDS M.D. Address [address] [facility] [place] [address] Phone [phone] Organization [facility] ([facility]) Care Team Providers Care Piece Dyeing Machine Tender Name Role Phone GLENDY RICHARDS Unavailable [phone] DEEPTI BAHENA Unavailable [phone] Reason for Referral Not Available Allergies, adverse reactions, alerts Allergen Type Reaction Severity Status Onset Date Rabies Vaccines Allergy to substance (disorder) swelling Mo derate Active N/A History of medication use Medication Class Instructions Start Date End Date Aspirin 325 mg Tab 1 tablet orally one time 2025-01-14 No Data Available Daily Value Multivitamin Tab 1 tablet orally daily 02-10-07 No Data Available Problem List Problem Status Onset Date Resolved Date Erectile dysfunction Inactive 2025-01-14 N/A Hyperlipidemia Inactive 2025-01-14 N/A Left knee pain Active 2025-01-14 N/A Arthritis of both knees Inactive 2025-01-14 N/A Encounters Encounters Type Facility Date of Service Diagnosis/Co mplaint Outpatient visit for evaluation and management of new patient, including medically appropriate examination and straightforward medical decision making, total time 15-29 minutes [facility] 01/14/2025 Hyperlipidemia, unspecifiedBilateral primary osteoarthritis of kneePain in left kneeMale erectile dysfunction, unspecifiedBody mass index (bmi) 25.0-25.9, adult Vital Signs Date of Collection Vitals 2025-01-14 08:00:00 Height - 180.34 cmWe ight - 83.46 kgBody Mass Index (BMI) - 25.66 kg/m2 Social History Sex Male History of Procedures Procedures Service Procedure code Service date Servicing provider Phone# Outpatient visit for evaluation and management of new patient, including medically appropriate examination and straightforward medical decision making, total time 15-29 minutes [id number] 2025-01-14 No Data Available No Data Nazia ilable Functional Status Functional Category Effective Dates Totally independent 2025-01-14 Mental Status No Information Assessments Date of Service Assessments 2025-01-14 08:00:00 Left knee painErecti le dysfunctionHyperlipidemiaArthritis of both knees Plan of Care Not Available Goals Date Goal 2025-01-14 Eat reduced red meat , saturated fat diet. Eat more baked fish, baked chicken, soy protein, beans, nuts, oatmeal, and avocados. 2025-01-14 Set up official adva nced directive 2025-01-14 Speak with PCP about left knee pain Health Concerns Date Concern 2025-01-14 [facility] Call[facility] is a service that involves a physician or advanced practice provider conducting comprehensive assessments in your patient s home or virtually to address crucial areas such as chronic conditions, quality gaps, social concerns, fall risk prevention, and various screenings. Please note that your patient will remain attributed to you even though they are participating in this service. If you have any questions, please reach out directly to our team at the phone number above.Karthik Sen is a pleasant 74 y/o (1950), male was seen today for a Healthy House Call virtual video visit. Patient read rights and responsibilities and consented to treatment. The purpose of this summary is to update you on the patient's current health status and share any relevant findings from the examination. 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 Reports medical, surgical, social histories, and medications below are accurate. 2025-01-14 Recommendations: 2025-01-14 Left knee pain 2025-01-14 Erectile dysfunction 2025-01-14 Hyperlipidemia 2025-01-14 Arthritis of both kn ees
== END 2025-01-22 15:00 | disposition home or self-care (01) ==
PROVIDERS: PCP Family Medicine; Visit Provider Family Medicine
DX: M17.12 Unilateral primary osteoarthritis, left knee (principal)
CPT/HCPCS: 73564

== ENCOUNTER 2025-02-28 08:00 | Outpatient (RCR) | payer OTHER, SELFPAY ==
--- NOTE | 2025-02-11 14:29 | OPREHPOC ---
Outpatient Therapy Plan of Care This is a Multidisciplinary Plan of Care that may contain components documented by all disciplines (PT, OT, and ST.) PT Problem 1 PT Problem #1 Knowledge Deficit PT Goal 1 Goal / Goal Update *independent with HEP Target Visit 6 PT Problem 2 PT Problem #2 Pain PT Goal 1 Goal / Goal Update * pt report L knee pain at worst of 4/10 Target Visit 6 PT Problem 3 PT Problem #3 Impaired Flexibility PT Goal 1 Goal / Goal Update *increase flexibility of L anterior hip/quad muscle with prone knee flexion 110' Target Visit 6 PT Problem 4 PT Problem #4 Impaired Strength PT Goal 1 Goal / Goal Update *increase gross strength of L hip and knee to 4+/5 , to improve stability to knee: 1* 10 reps with 3# ankle wt: of mat strengthening exercises with good stability 2* single leg standing x 10 seconds with good stability Target Visit 6
--- NOTE | 2025-02-11 14:30 | PTOPEVAL1 ---
Assessment and note entered by Ambika Romo, PT Evaluation Information Assessment Status Evaluation ICD-10 Condition Codes (PT) Pain in left knee M25.562;weakness Onset July 2024 Subjective Information gradual increase in L knee pain; knee gives out and he hesitates on stairs due to not trusting his knee xray report: advanced medial knee degenerative changes & moderate spurring of lateral knee and PF active: doing all home and self care activities, active- boxing for fitness Reported Pain Level Pain Score Self Report Additional Pain Score Comments pain range in the past week: 2-6/10; under patella- distal aspect increase pain: more activity, yard work, standing & pivot decrease pain: sit, rest, meloxicam, tylenol sleeping is not disrupted due to knee pain, but awaken in morning with knee pain Assessment PT Clinical Summary Karthik has the diagnosis of L knee pain. Recent x ray reports moderate spurring and advanced degenerative changes. 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 Gradual increase in knee pain, and he hesitates or avoids stairs as he can. Meloxicam helps his knee pain. LE functional scale self rating of 35% limitation in activity level. With the evaluation: decreased L knee flexion; decreased strength of hip abduction, adduction and extension, with tightness over L anterior hip/ quad muscles; decreased single leg standing on both legs. Skilled PT services are indicated for modalities to decrease pain, therapeutic exercises to increase hip and knee strength and flexibility with education for HEP and pain control. Plan of Care Interventions Electrical Stimulation,Hot Pack/Cold Pack,Manual Therapy,Neuro Re-education,Patient/Caregiver Education,Therapeutic Activities,Therapeutic Exercise,Ultrasound,Other Other Interventions taping PT Services Indicated Yes Treatment Frequency and 1-2x/wk for 6 visits Duration These treatments will address the objective and functional deficits as defined above. The patient will be advanced safely and appropriately in order for the patient to progress towards his/her prior level of function. Additional exercises will be introduced and as well as a comprehensive home exercise program upon discharge, if needed, ?to ensure carryover of functional gains achieved in the clinic. This treatment plan has been reviewed and agreement upon by the patient.
--- NOTE | 2025-02-28 08:47 | OPREHPOC ---
Outpatient Therapy Plan of Care This is a Multidisciplinary Plan of Care that may contain components documented by all disciplines (PT, OT, and ST.) PT Problem 1 PT Problem #1 Knowledge Deficit PT Goal 1 Goal / Goal Update *independent with HEP Target Visit 6 Progress Met PT Problem 2 PT Problem #2 Pain PT Goal 1 Goal / Goal Update * pt report L knee pain at worst of 4/10 Target Visit 6 Progress Met PT Problem 3 PT Problem #3 Impaired Flexibility PT Goal 1 Goal / Goal Update *increase flexibility of L anterior hip/quad muscle with prone knee flexion 110' Target Visit 6 Progress Met PT Problem 4 PT Problem #4 Impaired Strength PT Goal 1 Goal / Goal Update *increase gross strength of L hip and knee to 4+/5 , to improve stability to knee: 1* 10 reps with 3# ankle wt: of mat strengthening exercises with good stability 2* single leg standing x 10 seconds with good stability Target Visit 6 Progress Met
--- NOTE | 2025-02-28 08:49 | PTOPDC ---
Assessment and note entered by Donn Porter, PT Evaluation Information Assessment Status Discharge ICD-10 Condition Codes (PT) Pain in left knee M25.562 Onset July 2024 Subjective Information Reports that overall he is doing really well. Pain is controlled and he has been staying on top of his hip strength through his HEP. Feels comfortable with HEP and plans to discharge at this time. Reported Pain Level Pain Score 1: Self Report Pain Score 1: Self Report Assessment PT Clinical Summary Patient has met all goals for therapy at this time and is suitable for discharge to [facility]. 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 Plan of Care PT Services Indicated Yes
== END 2025-03-22 14:47 | disposition home or self-care (01) ==
LOC: ANHPT 08:00
PROVIDERS: PCP Family Medicine; Visit Provider Family Medicine
DX: M25.562 Pain in left knee (principal); R53.1 Weakness
CPT/HCPCS: 97110; 97161; 97530

== ENCOUNTER 2025-03-26 09:44 | Outpatient (CLI) | payer OTHER, SELFPAY ==
--- NOTE | ~2025-03-26 | XR_ITS ---
XR abdomen/kub 1V Ordering provider: Bora Bettencourt MD History: . KIDNEY STONE . Comparison: None. FINDINGS: BOWEL: Nonobstructive bowel gas pattern. ORGANOMEGALY: None. SIGNIFICANT PATHOLOGIC CALCIFICATIONS: Stone in the right kidney lower pole measuring 3.3 mm. OTHER: No free air is seen under the diaphragm. Levoscoliosis with degenerative changes of the spine. IMPRESSION: NO ACUTE ABDOMINAL FINDINGS. Stone in the right kidney lower pole. Noncontrast CT is better for evaluation Reviewed, dictated and finalized at location A.
--- OUTSIDE RECORDS SUMMARY | 2025-03-26 10:47 | XMS_ITS | Clinical Summary ---
Author Organization [facility] [address] Address [address] [place] [phone] Care Team Providers Care Vp Platforms Name Role Phone Carrillo Camarena MD Primary [...] 1 tablet by mouth Active Active Problems Problem Noted Date Diagnosed Date Supraventricular tachycardia 02/12/2025 PVC's (premature ventricular contractions) 02/12 Coronary artery disease invo lving [place] coronary artery of [place] heart without angina pectoris 02/12/2025 Encounters Date Type Department Care Team Description 02/12/2025 9:15 AM CDT Office Visit [facility] Cardiology at [address] [place] [address] Major Shaw MD Supraventricular tachycardia (Primary Dx); PVC's (premature ventricular contractions); Coronary artery disease involving [place] coronary artery of [place] heart without angina pectoris from Last 3 Months Immunizations Immunization Administration Dates Next Due Pfizer [...] on file Legal Sex Male 3:59 AM JUICE 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 Gender Identity Not on file Sexual Orientation Not on file Obstetrics History Last Filed Vital Signs Vital Sign Reading Time Taken Comments Blood Pressure 150/84 02/12/2025 9:19 AM CDT Pulse 77 02/12/2025 9:19 AM CDT Temperature 38.1 C (100.6 F) 08/23/2024 5:03 PM JUICE MIXER Respiratory Rate 20 08/23/2024 5:03 PM JUICE MIXER Oxygen Saturation 96% 02/12/2025 9:19 AM CDT Inhaled Oxygen Concentration - - Weight 85.4 kg (188 lb 3.2 oz) 02/12/2025 9:19 A M CDT Height 180.3 cm (5' 11) 02/12/2025 9:19 AM CDT Body Mass Index 26.25 02/12/2025 9:19 AM CDT Plan of Treatment Health Maintenance Due Date [...] 06/27/2021, 07/03/2020, 07/05/2019, Additional history exists Insurance [facility] OTHER Address: [address] [place] [address] MEDICARE RAIL[address] [facility] Care Teams Vp Platforms Relationship Specialty Start Date End Date Carrillo Camarena MD [address] [place] [id number] PCP - General Family Medicine 01/26/24
--- OUTSIDE RECORDS SUMMARY | 2025-03-26 10:47 | XMS_ITS | Referral Summary ---
Author Organization [address] Address [address] [place] [address] Care Team Providers Care Forestry Foreman Name Role Phone Carrillo Camarena MD Primary Care Provider Encounters Date Type Department Care Team Description 02/12/2025 9:15 AM CDT Office Visit [facility] Cardiology at [address] [place] [address] Major Shaw MD Supraventricular tachycardia (Primary Dx); PVC's (premature ventricular contractions); Coronary artery disease involving [place] coronary artery of [place] heart without angina pectoris from Last 3 Months Allergies Active Allergy Reactions Criticality Noted Date [...] contractions) 02/12 Coronary artery disease invo lving [place] coronary artery of [place] heart without angina pectoris 02/12/2025 Immunizations Immunization Administration Dates Next Due Pfizer SARS-CoV-2 Monovalent Vaccination (12+ Yrs) DRIVER-READY TO USE 01/13/2022 Social History Tobacco Use Types Packs/Day Years Used Date Smoking Tobacco: Never Smokeless Tobacco: Never Tobacco Cessation:Counseling Given: Not Answered Sex and Gender Information Value Date Recorded Sex Assigned at Not on file 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 Gender Identity Not on file Sexual Orientation Not on file Last Filed Vital Signs Vital Sign Reading Time Taken Comments Blood Pressure 150/84 02/12/2025 9:19 AM CDT Pulse 77 02/12/2025 9:19 AM CDT Temperature 38.1 C (100.6 F) 08/23/2024 5:03 PM SCROLL MACHINE OPERATOR Respiratory Rate 20 08/23/2024 5:03 PM SCROLL MACHINE OPERATOR Oxygen Saturation 96% 02/12/2025 9:19 AM CDT Inhaled Oxygen Concentration - - Weight 85.4 kg (188 lb 3.2 oz) 02/12/2025 9:19 A M CDT Height 180.3 cm (5' 11) 02/12/2025 9:19 AM CDT Body Mass Index 26.25 02/12/2025 9:19 AM CDT Plan of Treatment Not on file Insurance [facility] MEDICARE RAILROAD [facility] Care Teams Forestry Foreman Relationship Specialty Start Date End Date Carrillo Camarena MD [address] [place] [address] PCP - General Family Medicine 01/26/24
--- OUTSIDE RECORDS SUMMARY | 2025-03-26 10:47 | XMS_ITS ---
Author Name GLENDY RICHARDS M.D. Address [address] [facility] [place] [address] Phone [phone] Organization [facility] ([facility]) Care Team Providers Care In Processing Instructor Name Role Phone GLENDY RICHARDS Unavailable [phone] DEEPTI BAHENA Unavailable [phone] Reason for Referral Not Available Allergies, adverse [...] List Problem Status Onset Date Resolved Date Synopsis Erectile dysfunction Inactive 2025-01-14 N/A With meds Hyperlipidemia Inactive 2025-01-14 N/A With diet and meds Left knee pain Active 2025-01-14 N/A Will conta ct his PCP today Arthritis of both knees Inactive 2025-01-14 N/A E xercise and meds Encounters Encounters Type Facility Date of Service Diagnosis/Co mplaint Outpatient visit for evaluation and management of new patient, including medically appropriate examination and straightforward medical decision making, total time 15-29 minutes [facility] 01/14/2025 Hyperlipidemia, unspecifiedBilateral primary osteoarthritis of kneePain [...] medical decision making, total time 15-29 minutes [id number] 2025-01-14 No Data Available No Data Nazia [...] from the examination. 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 Reports medical, surgical, social histories, and medications below are accurate. 2025-01-14 Recommendations: 2025-01-14 Left knee pain 2025-01-14 Erectile dysfunction 2025-01-14 Hyperlipidemia 2025-01-14 Arthritis of both kn ees
--- OUTSIDE RECORDS SUMMARY | 2025-03-26 10:47 | XMS_ITS | Encounter Summary ---
Author Organization [facility] Address [address] [place] [address] Care Team Providers Care Airframe And Powerplant Mechanic Name Role Phone Carrillo Camarena MD Primary Care Provider Encounter Details Date Type Department Care Team (Late st Contact Info) Description 07/16/2024 Lab Requisition [facility] - DermPath Lab [address], [facility] [place] [id number] Noman Randolph MD [facility] [address] [place] [phone] Dermatitis, unspecified Social History Tobacco Use Types Packs/Day Years Used Date Smoking Tobacco: Never Smokeless Tobacco: Never Alcohol Use Standard Drinks/Week Comments Yes 0 (1 standard drink = 0.6 oz pur e alcohol) Sex and Gender Information Value Date Recorded Sex Assigned at Not on file Legal Sex Male 6:22 PM MANAGER UNIX Gender Identity Not on file Sexual Orientation Not on file documented as of this encounter Plan of Treatment Not on file documented as of this encounter Procedures Procedure Name Priority Date/Time Associated Diagnosis Comments DERMATOPATHOLOGY Routine 07/16/2024 12:0 0 AM CDT Dermatitis, unspecified documented in this encounter Results * DERMATOPATHOLOGY (07/16/2024 12:00 AM CDT) Case Report Dermatopathology Report Case: [id number] Authorizing Provider: Noman Randolph MD Collected: 07/16/2024 12:00 AM Ordering Location: [facility] - Received: 07/17/2024 01:45 PM DermPath Lab Pathologist: Louise Henderson MD Specimen: Skin, left upper back 3:42 PM CDT DERMATOPATHOLOGY LABORATORY Final Diagnosis Specimen A. SKIN, left upper back: SUBACUTE SPONGIOTIC DERMATITIS (L30.8) CHRONIC PERIFOLLICULITIS (L73.8) (see microscopic description and comment) 3:42 PM CDT DERMATOPATHOLOGY LABORATORY at 1542 CDT Clinical History Atopic dermatitis 3:42 PM CDT DERMATOPATHOLOGY LABORATORY Gross Description Specimen A: Received is one formalin filled container labeled with the patient's name and designated left upper back. The specimen consists of a punch biopsy measuring 3x3x3 mm. Jar 0. 3:42 PM CDT DERMATOPATHOLOGY LABORATORY Microscopic Description Specimen A. SKIN, [...] folliculitis. Clinicopathologic correlation is recommended. 3:42 PM CDT DERMATOPATHOLOGY LABORATORY Disclaimer An external and internal positive and negative controls are appropriate for the histochemical, immunohistochemical and immunofluorescence stain(s) in this case (if any), except where stated explicitly. The performance characteristics of the stain(s) cited in this report were developed and its performance characteristic determined by the Dermatopathology Laboratory at [facility], directed by Dr. Adam Mckeon. These tests need not be, and therefore are not, approved by the [place] Food and Drug Administration. The tests are used for clinical purposes. Billing Codes Specimen Charges Stain Charges 20848 1 84768 1 3:42 PM CDT DERMATOPATHOLOGY LABORATORY Embedded Images 3:42 PM CDT DERMATOPATHOLOGY LABORATORY Pathology/Cytolog y TISSUE SPECIMEN FROM SKIN / Unknown 07/16/2024 07/17/2024 1:45 PM CDT Noman Randolph MD LAB - PATHOLOGY/CYTOLOGY ORDE RABLES Final Result DERMATOPATHOLOGY LABORATORY [facility] - Department of Dermatology [facility] [address] [place] [address], [address] [phone] documented in this encounter Visit Diagnoses Diagnosis Dermatitis, unspecified documented in this encounter Care Teams Airframe And Powerplant Mechanic Relationship Specialty Start Date End Date Carrillo Camarena MD [address] [place] [address] PCP - General 10/01/14 documented as of this encounter
--- OUTSIDE RECORDS SUMMARY | 2025-03-26 10:47 | XMS_ITS | Clinical Summary ---
Author Organization [facility] Address [address] [place] [address] Care Team Providers Care Double End Chucking Machine Operator Name Role Phone Carrillo Camarena MD Primary Care Provider [phone] Source Comments [facility],non-owned Affiliates and Associated Physician Practices is amultiple site organization consisting of ambulatory clinics and hospital sitesin [place], [place], [place]. This disclosure is being madepursuant to the Care Everywhere program and may not contain all information available regarding this patient. 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
== END 2025-03-26 09:45 | disposition home or self-care (01) ==
PROVIDERS: PCP Family Medicine; Visit Provider Urology
DX: N20.0 Calculus of kidney (principal)
CPT/HCPCS: 74018